=== PATIENT | female | born 1985 | race Caucasian/White ===

== ENCOUNTER 2019-03-23 22:55 | Emergency (ER) | payer MEDICAID ==
--- NOTE | 2019-03-23 23:08 | ED Physician Documentation ---
History of Present Illness - Stated complaint Stated Complaint: LOW BACK PAIN - Chief complaint Chief Complaint: Back Pain - Additonal information Additional information: This is a 33-year-old G6, P3 who is currently at around 12 weeks by LMP Who presents with some abdominal cramping after a fall. Patient was walking across her yard tonight and slipped landing on her bottom and then onto her lower back. She had mild lower back pain, but since that time she also developed some lower abdominal cramping, given her current she wanted to get checked out. She denies vaginal bleeding, states the cramping is mild and nancy rates from the right to the left side. No vomiting. She recently moved to the area and is in the process of establishing with an OB provider. 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 Living Arrangement: reports: At home PD ED PE NORMAL - Vitals Vital signs reviewed: Yes - General General: Alert and oriented X 3, No acute distress - HEENT HEENT: PERRL - Neck Neck: Supple, no meningeal sign - Cardiac Cardiac: RRR, No murmur - Respiratory Respiratory: Clear bilaterally - Abdomen Abdomen: Normal bowel sounds, Soft, Non distended, Other (Very mild suprapubic tenderness to deep palpation, otherwise abdomen is non-tender. No guarding) - Back Back: Other (There is mild right paraspinous tenderness to palpation, no midline tenderness, no external signs of trauma, no bruising, noLaceration/abrasion. Patient has excellent range of motion with flexion extension of her back.) - Derm Derm: Warm and dry - Extremities Extremities: No deformity - Neuro Neuro: Alert and oriented X 3 - Psych Psych: Normal mood, Normal affect Results - Vitals Vitals: Vital Signs - 24 hr 03/23/19 23:02 Temperature 37.0 C Heart Rate 99 Respiratory 14 Rate Blood Pressure 143/82 H O2 Saturation 99 Oxygen O2 Source Room air - Labs Labs: Laboratory Tests 03/23/19 03/23/19 03/23/19 23:05 23:25 23:25 WBC 13.1 H RBC 4.55 Hgb 12.3 Hct 38.3 MCV 84.2 MCH 27.0 MCHC 32.1 RDW 16.9 H Plt Count 381 MPV 9.5 Neut # (Auto) 9.4 H Lymph # (Auto) 2.6 [place] # (Auto) 0.8 Eos # (Auto) 0.2 Baso # (Auto) 0.1 Absolute Nucleated RBC 0.00 Nucleated RBC % 0.0 Sodium 137 Potassium 3.7 Chloride 105 Carbon Dioxide 22 Anion Gap 10.0 BUN 7 Creatinine 0.5 Estimated GFR (MDRD) 141 Glucose 93 Calcium 8.7 Total Bilirubin 0.3 AST 16 ALT 24 Alkaline Phosphatase 65 Total Protein 7.5 Albumin 3.6 Globulin 3.9 Albumin/Globulin Ratio 0.9 L Lipase 27 HCG, Quant Urine Color YELLOW Urine Clarity CLEAR Urine pH 8.0 H Ur Specific [place] 1.010 Urine Protein 30 H Urine Glucose (UA) NEGATIVE Urine Ketones NEGATIVE Urine Occult Blood TRACE-INTA Urine Nitrite NEGATIVE Urine Bilirubin NEGATIVE Urine Urobilinogen 0.2 (NORMAL) Ur Leukocyte Esterase NEGATIVE Urine RBC 0-5 Urine WBC 0-3 Ur Squamous Epith Cells FEW Squamous Urine Bacteria Rare Urine Culture Comments NOT INDICATED Urine HCG, Qual Cancelled 03/23/19 23:25 WBC RBC Hgb Hct MCV MCH MCHC RDW Plt Count MPV Neut # (Auto) Lymph # (Auto) [place] # (Auto) Eos # (Auto) Baso # (Auto) Absolute Nucleated RBC Nucleated RBC % Sodium Potassium Chloride Carbon Dioxide Anion Gap BUN Creatinine Estimated GFR (MDRD) Glucose Calcium Total Bilirubin AST ALT Alkaline Phosphatase Total Protein Albumin Globulin Albumin/Globulin Ratio Lipase HCG, Quant 09784.00 Urine Color Urine Clarity Urine pH Ur Specific [place] Urine Protein Urine Glucose (UA) Urine Ketones Urine Occult Blood Urine Nitrite Urine Bilirubin Urine Urobilinogen Ur Leukocyte Esterase Urine RBC Urine WBC Ur Squamous Epith Cells Urine Bacteria Urine Culture Comments Urine HCG, Qual - Rads (name of study) US OB Radiology: Other (Single live intrauterine , large bilaterally simple appearing adnexal cysts with blood flow present and without definite acute complication, but gynecologic follow-up is recommended) PD MEDICAL DECISION MAKING - ED course Complexity details: considered differential (Abdominal cramping, threatened miscarriage, ovarian torsion, UTI, appendicitis, Sprain, strain, fracture) ED course: Patient is well-appearing on exam, she has has mild tenderness in her paraspinous muscles without any midline tenderness or signs of fracture. Given her reassuring exam, her Low-energy mechanism of injury, fracture or other osseous abnormality is extremely unlikely and imaging is deferred at this time. She has some mild abdominal cramping, and very mild suprapubic tenderness to palpation, but her abdomen is Benign. She has no vaginal bleeding. Labs show a mild leukocytosis which is nonspecific and may be simply due to her , Urine is negative for infection. Abdominal panel is unremarkable. hCG is appropriately elevated ultrasound shows a single by heart rate of 162. She does have bilateral large ovarian cysts, these are known, she states that she has been told that she has softball sized cysts in the past. These have been asymptomatic, and given patient's crampy pain which migrates around her lower abdomen tonight, they are unlikely to be the cause of her discomfort. She has good blood flow seen on ultrasound tonight, I do not see signs of torsion. I went over the results of the ultrasound with the patient, and explained that if she has increasing pain, or pain which localizes to one side of her abdomen she does need be rechecked, given the risk of torsion or other abdominal/pelvic pathology. I also discussed that she should follow-up on the cyst with her OB provider, she has follow-up in the next 6 days. A copy of her preliminary results were given to the patient. After discussing return precautions and supportive care patient was discharged home in the care of her partner. Departure - Departure Disposition: 01 Home, Self Care Clinical Impression: Qualifiers: Weeks of gestation: 11 weeks Qualified Code(s): Z3A.11 - 11 weeks gestation of Fall Qualifiers: Encounter type: initial encounter Qualified Code(s): W19.XXXA - Unspecified fall, initial encounter Ovarian cyst Qualifiers: Laterality: bilateral Qualified Code(s): N83.201 - Unspecified ovarian cyst, right side; N83.202 - Unspecified ovarian cyst, left side Condition: Good Follow-Up: Jonah Shaikh MD [Provider Admit Priv/Credential] - (As scheduled in the next week) Comments: You were seen today for some abdominal cramping after a fall. On our ultrasound the fetus looked viable and the heart rate looked normal. You do have some large cysts on your ovaries, these should be followed up with your OB provider, and if you are having significant abdominal pain, vaginal bleeding, or other concerning symptoms you should return to the emergency department like we talked about. It is okay to take Tylenol for back discomfort or minor pain. Forms: Activity restrictions
[2019-03-23] MEDS ORDERED: ACETAMINOPHEN 325 MG TABLET PO STA (23:21)
[2019-03-23 23:25] LABS: BILIRUBIN,URINE NEGATIVE (NEGATIVE); CLARITY,URINE CLEAR (CLEAR); GLUCOSE, URINE (UA) NEGATIVE (NEGATIVE); KETONES,URINE (UA) NEGATIVE (NEGATIVE); LEUKOCYTE ESTERASE, URINE NEGATIVE (NEGATIVE); NITRITE,URINE NEGATIVE (NEGATIVE); OCCULT BLOOD,URINE TRACE-INTA (NEGATIVE); PROTEIN,URINE 30 mg/dL (NEGATIVE); UROBILINOGEN,URINE 0.2 (NORMAL) E.U./dL (NORMAL)
[2019-03-23 23:30] LABS: BACTERIA,URINE Rare /HPF (None Seen); RBC,URINE 0-5 /HPF (0-5); SQUAMOUS EPITHELIAL CELL,UR FEW Squamous (<= Few)
[2019-03-23 23:33] LABS: BASOPHILS # (AUTO) 0.1 10^3/uL (0.0-0.1); BASOPHILS % (AUTO) 0.6 %; EOSINOPHILS # (AUTO) 0.2 10^3/uL (0.0-0.7); EOSINOPHILS % (AUTO) 1.3 %; HGB - HEMOGLOBIN 12.3 g/dL (12.0-16.0); LYMPHOCYTES # (AUTO) 2.6 10^3/uL (1.5-3.5); MEAN CORPUSCULAR HGB CONC 32.1 g/dL (32.0-36.0); MEAN CORPUSCULAR VOLUME 84.2 fL (81.0-99.0); MEAN PLATELET VOLUME 9.5 fL (7.9-10.8); MONOCYTES # (AUTO) 0.8 10^3/uL (0.0-1.0); MONOCYTES % (AUTO) 5.9 %; NEUTROPHILS # (AUTO) 9.4 10^3/uL (1.5-6.6); NEUTROPHILS % (AUTO) 71.7 %; PLT - PLATELET COUNT 381 10^3/uL (130-450); RED BLOOD COUNT 4.55 10^6/uL (4.20-5.40); RED CELL DISTRIBUTION WIDTH 16.9 % (12.0-15.0); WHITE BLOOD COUNT 13.1 x10^3/uL (4.8-10.8)
[2019-03-23 23:47] LABS: ALBUMIN 3.6 g/dL (3.2-5.5); ALBUMIN/GLOBULIN RATIO 0.9 (1.0-2.2); BILIRUBIN,TOTAL 0.3 mg/dL (0.2-1.0); CALCIUM 8.7 mg/dL (8.5-10.3); CREATININE 0.5 mg/dL (0.4-1.0); TOTAL PROTEIN 7.5 g/dL (6.7-8.2)
--- NOTE | 2019-03-24 01:00 | Ultrasound Report ---
Reason: 12 wks, abd cramping, no prior US Procedure Date: 03/23/2019 Accession Number: [id number] / [id number] Procedure: US - OB First Trimester CPT Code: Final Report FULL RESULT: EXAM: FIRST TRIMESTER OBSTETRIC ULTRASOUND (LESS THAN 11 WEEKS). EXAM DATE: 03/23/2019 11:59 PM. CLINICAL HISTORY: , abdominal cramping, no prior ultrasound. LMP: 01/03/2019, 11 weeks 2 days. COMPARISONS: None. TECHNIQUE: Transabdominal ultrasound examination with static image documentation. FINDINGS: Gestational Sac: An intrauterine fluid-filled sac contains both an embryo and yolk sac. Embryo: CRL (crown-rump length) measures 46 mm corresponding to an estimated gestational age of 11 weeks 3 days. Heart Rate: 162 beats per minute. Placenta: Not visible at this gestational age. Amniotic fluid: Not accurately assessed at this gestational age. Uterus: Unremarkable anteverted appearance. Cervix: Closed. Adnexa: There are bilateral large simple appearing cysts measuring 10.2 x 7.9 x 10.3 cm on the right and 9.9 x 12.4 x 5.7 cm on the left. Probable small amount of normal ovarian tissue noted along the right adnexal cyst but no normal ovarian tissue seen on the left. Blood flow is seen around the periphery of the cyst. No definitive suspicious component seen. Free Fluid: None. Other: None. IMPRESSION: 1. Single live intrauterine at 11 weeks 2 days by LMP, today's exam is concordant -- for an estimated delivery date of 10/10/2019. 2. Large bilateral grossly simple appearing adnexal cysts measuring up to 10 cm on the right and 12 cm on the left. No definite acute complication but gynecologic follow-up is recommended given cyst size. Intermittent torsion cannot be excluded by imaging. At minimum, sonographic surveillance during will be necessary. MRI may also be ultimately useful. RADIA
[2019-03-24 01:09] VITALS: BP 113/78
== END 2019-03-24 01:09 | disposition home or self-care (01) ==
LOC: ED 22:55
DX: O99.89 Other specified diseases and conditions complicating pregnancy, childbirth and the puerperium (principal); R10.30 Lower abdominal pain, unspecified; M54.5 Low back pain; W01.0XXA Fall on same level from slipping, tripping and stumbling without subsequent striking against object, initial encounter; Y93.01 Activity, walking, marching and hiking; Y92.007 Garden or yard of unspecified non-institutional (private) residence as the place of occurrence of the external cause; O34.81 Maternal care for other abnormalities of pelvic organs, first trimester; N83.202 Unspecified ovarian cyst, left side; N83.201 Unspecified ovarian cyst, right side; Z3A.11 11 weeks gestation of pregnancy
CPT/HCPCS: 36415; 76801; 80053; 81001; 83690; 84702; 85025; 99284; A9270; 81025; 87086

== ENCOUNTER 2019-03-30 07:00 | Outpatient (CLI) | payer MEDICAID ==
[2019-03-30 18:27] LABS: MUDS CUTOFF CONCENTRATIONS CUTOFF CONC BELOW:
[2019-03-30 18:59] LABS: BILIRUBIN,URINE NEGATIVE (NEGATIVE); GLUCOSE, URINE (UA) NEGATIVE (NEGATIVE); KETONES,URINE (UA) NEGATIVE (NEGATIVE); LEUKOCYTE ESTERASE, URINE NEGATIVE (NEGATIVE); NITRITE,URINE NEGATIVE (NEGATIVE); OCCULT BLOOD,URINE TRACE-LYSE (NEGATIVE); PROTEIN,URINE 100 mg/dL (NEGATIVE); UROBILINOGEN,URINE 0.2 (NORMAL) E.U./dL (NORMAL)
[2019-03-30 19:03] LABS: CLARITY,URINE CLEAR (CLEAR)
[2019-03-30 19:10] LABS: AMPHETAMINE SCREEN,URINE NEGATIVE (NEGATIVE); BENZODIAZEPINES SCREEN, URINE NEGATIVE (NEGATIVE); COCAINE SCREEN URINE NEGATIVE (NEGATIVE); METHADONE SCREEN, URINE NEGATIVE (NEGATIVE); METHAMPHETAMINES SCREEN, URINE NEGATIVE (NEGATIVE); OPIATE SCREEN, URINE NEGATIVE (NEGATIVE); OXYCODONE SCREEN, URINE NEGATIVE (NEGATIVE); PROPOXYPHENE SCREEN, URINE NEGATIVE (NEGATIVE); TRICYCLIC ANTIDEPRESSANT,URINE NEGATIVE (NEGATIVE)
[2019-03-30 19:11] LABS: BACTERIA,URINE None Seen /HPF (None Seen); RBC,URINE 0-5 /HPF (0-5); SQUAMOUS EPITHELIAL CELL,UR RARE Squamous (<= Few)
[2019-03-30 21:37] LABS: TRICHOMONAS VAGINALIS DNA NEGATIVE (NEGATIVE)
== END 2019-03-30 23:59 | disposition home or self-care (01) ==
LOC: LAB.R 07:00
PROVIDERS: ATTEND Obstetrics & Gynecology
DX: Z34.90 Encounter for supervision of normal pregnancy, unspecified, unspecified trimester (principal)
CPT/HCPCS: 80306; 81001; 87086; 87491; 87591; 87661

== ENCOUNTER 2019-05-20 08:29 | Outpatient (CLI) | payer MEDICAID ==
--- NOTE | 2019-05-22 04:42 | Ultrasound Report ---
Reason: ENCOUNTER FOR SCREENING Procedure Date: 05/20/2019 Accession Number: [id number] / [id number] Procedure: US - OB Detailed Eval CPT Code: Final Report FULL RESULT: EXAM: COMPLETE OBSTETRICAL ULTRASOUND EXAM DATE: 05/20/2019 10:11 AM. CLINICAL HISTORY: anatomic survey. COMPARISON: OB FIRST TRIMESTER 03/23/2019 11:40 PM. TECHNIQUE: Real-time sonographic evaluation of the fetus performed by the training instructor. Multiple outbound sales representative static images were saved for review. Additional transvaginal imaging to more accurately evaluate cervical length/placental position/etc. DATING: Established EGA 19 weeks 4 days with BURTON 10/10/2019 based on stated dates. EGA 19 weeks 4 days with BURTON 10/10/2019 based on LMP. EGA 19 weeks 3 days with BURTON 10/11/2019 based on the current ultrasound. GENERAL EVALUATION [place] . Cardiac activity: 147 bpm. movement: Visualized. Presentation: Variable. Placenta: Posterior position. No evidence for previa. Umbilical cord: 3 vessel cord. Central placental cord origin. Amniotic fluid: Subjectively normal. MVP 5.5 cm. BIOMETRY Bi-Parietal Diameter (BPD): 4.5 cm, 19 weeks 5 days Head Circumference (HC): 17.2 cm, 19 weeks 6 days Abdominal Circumference (AC): 14.619 weeks 6 days cm, weeks/days Femur Length (FL): 2.8 cm, 18 weeks 4 days Estimated Weig 287 ht: g, 32.4 percentile for 19 weeks 4 days. ANATOMY The intracranial structures, profile, face/nose/lips, spine, 4 chamber heart and outflow tracts, stomach, abdominal wall and cord insertion, diaphragm, kidneys, bladder, and extremities were visualized and demonstrate no abnormality. MATERNAL STRUCTURES Uterus: Unremarkable. Cervix: Long and closed. Transabdominal length 4.7 cm. Right ovary/adnexa: Large cyst measuring 11.2 x 6.7 x 10.2 cm, 400 cc, previously 434 cc. Left ovary/adnexa: Large cyst measuring 10.5 x 6.1 x 9.8 cm, 328 cc, previously 372 cc. Free fluid: None. IMPRESSION: 1. [place] live intrauterine with gestational age 19 weeks 4 days based on stated dates. 2. Estimated weight is within expected limits for assigned dating. 3. Normal anatomic survey. No anatomic abnormalities are detected at this time. 4. Large bilateral ovarian cysts again seen. RADIA
== END 2019-05-20 08:30 | disposition home or self-care (01) ==
LOC: DI 08:29
PROVIDERS: ATTEND Obstetrics & Gynecology
DX: Z34.92 Encounter for supervision of normal pregnancy, unspecified, second trimester (principal)
CPT/HCPCS: 76811

== ENCOUNTER 2019-06-09 14:25 | Outpatient (CLI) | payer MEDICAID ==
[2019-06-09 14:58] VITALS: BP 132/60
[2019-06-09 15:20] LABS: BILIRUBIN,URINE NEGATIVE (NEGATIVE); GLUCOSE, URINE (UA) NEGATIVE (NEGATIVE); KETONES,URINE (UA) NEGATIVE (NEGATIVE); LEUKOCYTE ESTERASE, URINE NEGATIVE (NEGATIVE); NITRITE,URINE NEGATIVE (NEGATIVE); OCCULT BLOOD,URINE MODERATE (NEGATIVE); PH,URINE 6.5 PH (5.0-7.5); PROTEIN,URINE 100 mg/dL (NEGATIVE); UROBILINOGEN,URINE 0.2 (NORMAL) E.U./dL (NORMAL)
[2019-06-09 15:33] LABS: CLARITY,URINE CLEAR (CLEAR)
[2019-06-09 15:46] LABS: RBC,URINE 0-5 /HPF (0-5); SQUAMOUS EPITHELIAL CELL,UR MANY Squamous (<= Few)
[2019-06-09 15:47] LABS: BACTERIA,URINE Rare /HPF (None Seen); CASTS, URINE 3-5 Hyaline Casts /LPF; MUCUS,URINE Few Strands
--- NOTE | 2019-06-09 16:13 | PROVIDER PROGRESS NOTE ---
- HPI Chief Complaint: Other (right sided groin pain and tenderness. onset this AM. 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
== END 2019-06-09 16:05 | disposition home or self-care (01) ==
LOC: WFO 14:25 → FBP 14:26 → WFO 16:05
PROVIDERS: ATTEND Obstetrics & Gynecology
DX: O99.89 Other specified diseases and conditions complicating pregnancy, childbirth and the puerperium (principal); R10.31 Right lower quadrant pain; Z3A.22 22 weeks gestation of pregnancy
CPT/HCPCS: 81001; 87086; 99212; 99214

== ENCOUNTER 2019-07-27 09:15 | Outpatient (CLI) | payer MEDICAID ==
[2019-07-27 12:59] LABS: BASOPHILS # (AUTO) 0.1 10^3/uL (0.0-0.1); BASOPHILS % (AUTO) 0.7 %; EOSINOPHILS # (AUTO) 0.2 10^3/uL (0.0-0.7); EOSINOPHILS % (AUTO) 1.7 %; HGB - HEMOGLOBIN 10.3 g/dL (12.0-16.0); LYMPHOCYTES # (AUTO) 1.9 10^3/uL (1.5-3.5); LYMPHOCYTES % (AUTO) 14.9 %; MEAN CORPUSCULAR HEMOGLOBIN 28.1 pg (27.0-31.0); MEAN CORPUSCULAR HGB CONC 29.3 g/dL (32.0-36.0); MEAN CORPUSCULAR VOLUME 95.6 fL (81.0-99.0); MEAN PLATELET VOLUME 10.6 fL (7.9-10.8); MONOCYTES # (AUTO) 0.8 10^3/uL (0.0-1.0); NEUTROPHILS # (AUTO) 9.6 10^3/uL (1.5-6.6); NEUTROPHILS % (AUTO) 75.7 %; PLT - PLATELET COUNT 370 10^3/uL (130-450); RED BLOOD COUNT 3.67 10^6/uL (4.20-5.40); WHITE BLOOD COUNT 12.7 x10^3/uL (4.8-10.8)
[2019-07-27 13:33] LABS: ALBUMIN 2.6 g/dL (3.2-5.5); ALBUMIN/GLOBULIN RATIO 0.7 (1.0-2.2); BILIRUBIN,TOTAL 0.2 mg/dL (0.2-1.0); CALCIUM 8.4 mg/dL (8.5-10.3); CREATININE 0.4 mg/dL (0.4-1.0); TOTAL PROTEIN 6.4 g/dL (6.7-8.2)
[2019-07-27 14:12] LABS: HB2 TOTAL 10.3 g/dL; HEMOGLOBIN A1C 0.36 g/dL; HEMOGLOBIN A1C % 5.3 % (4.6-6.2)
[2019-07-28 10:24] LABS: HEPATITIS C ANTIBODY NON-REACTIVE (NON-REACTIVE)
[2019-07-28 10:25] LABS: HEPATITIS B SURFACE ANTIGEN NON-REACTIVE (NON-REACTIVE)
[2019-07-28 10:40] LABS: HIV AG/AB 4TH GEN NON-REACTIVE (NON-REACTIVE)
== END 2019-07-27 23:59 | disposition home or self-care (01) ==
LOC: LAB.WCP 09:15
PROVIDERS: ATTEND Obstetrics & Gynecology
DX: Z34.90 Encounter for supervision of normal pregnancy, unspecified, unspecified trimester (principal); Z31.5 Encounter for procreative genetic counseling; Z36.89 Encounter for other specified antenatal screening
CPT/HCPCS: 36415; 80053; 81599; 82950; 83036; 85025; 86592; 86762; 86803; 86850; 86900; 86901; 87340; 87389; 87522

== ENCOUNTER 2019-08-04 14:57 | Outpatient (CLI) | payer MEDICAID ==
--- NOTE | 2019-08-06 03:00 | Ultrasound Report ---
Reason: UTERINE SIZE DATE DISCREPANCY Procedure Date: 08/04/2019 Accession Number: [id number] / [id number] Procedure: US - OB F/U or Repeat CPT Code: Final Report FULL RESULT: EXAM: FOLLOW-UP OBSTETRICAL ULTRASOUND EXAM DATE: 08/04/2019 04:24 PM. CLINICAL HISTORY: UTERINE SIZE DATE DISCREPANCY. COMPARISON: OB DETAILED EVAL 05/20/2019 8:35 AM. TECHNIQUE: Real-time sonographic evaluation of the fetus performed by the leather colorer. Multiple quality assurance representative static images were saved for review. DATING: Established EGA 30 weeks 3 days with BURTON 10/10/2019 based on LMP. EGA 30 weeks 3 days with BURTON 10/20/2019 based on first ultrasound. EGA 31 weeks 5 days with BURTON 10/01/2019 based on the current ultrasound. GENERAL EVALUATION [place] . Cardiac activity: 147 bpm. movement: Visualized. Presentation: Cephalic. Placenta: Posterior position. Amniotic fluid: CARLOS 24.4 cm. MVP 7.3 cm. BIOMETRY Bi-Parietal Diameter (BPD): 7.97 cm, 32 weeks 0 days Head Circumference (HC): 30.24 cm, 33 weeks 4 days Abdominal Circumference (AC): 29.01 cm, 33 weeks 0 days Femur Length (FL): 5.25 cm, 28 weeks 0 days Estimated Weight: 1778 g, 74.5 percentile for 30 weeks 3 days. MATERNAL STRUCTURES Large bilateral ovarian cysts measuring 15.6 x 10.9 x 14.7 cm on the right and 10.5 x 7.8 x 11.0 cm on the left. IMPRESSION: 1. [place] live intrauterine with gestational age 30 weeks 3 days based on source of assigned dating. 2. Estimated weight is within expected limits for assigned dating. 3. Normal interval growth compared to 05/20/2019. 4. Mild polyhydramnios. 5. Measured femur length is below the 5th percentile for gestational age. RADIA
== END 2019-08-04 14:58 | disposition home or self-care (01) ==
LOC: DI 14:57
PROVIDERS: ATTEND Obstetrics & Gynecology
DX: O26.843 Uterine size-date discrepancy, third trimester (principal); O40.3XX0 Polyhydramnios, third trimester, not applicable or unspecified; Z3A.30 30 weeks gestation of pregnancy
CPT/HCPCS: 76816

== ENCOUNTER 2019-09-13 07:00 | Outpatient (CLI) | payer MEDICAID ==
[2019-09-13 15:45] LABS: BILIRUBIN,URINE NEGATIVE (NEGATIVE); GLUCOSE, URINE (UA) NEGATIVE (NEGATIVE); KETONES,URINE (UA) NEGATIVE (NEGATIVE); LEUKOCYTE ESTERASE, URINE SMALL (NEGATIVE); NITRITE,URINE NEGATIVE (NEGATIVE); OCCULT BLOOD,URINE SMALL (NEGATIVE); PH,URINE 7.5 PH (5.0-7.5); PROTEIN,URINE >=300 mg/dL (NEGATIVE); UROBILINOGEN,URINE 0.2 (NORMAL) E.U./dL (NORMAL)
[2019-09-13 15:58] LABS: CLARITY,URINE CLEAR (CLEAR)
[2019-09-13 15:59] LABS: BACTERIA,URINE Few /HPF (None Seen); RBC,URINE 0-5 /HPF (0-5); SQUAMOUS EPITHELIAL CELL,UR MANY Squamous (<= Few)
[2019-09-13 16:23] LABS: CREATININE,URINE 59.2 mg/dL
[2019-09-13 21:34] LABS: TRICHOMONAS VAGINALIS DNA NEGATIVE (NEGATIVE)
== END 2019-09-13 23:59 | disposition home or self-care (01) ==
LOC: LAB.R 07:00
PROVIDERS: ATTEND Advanced Practice Midwife
DX: Z34.90 Encounter for supervision of normal pregnancy, unspecified, unspecified trimester (principal); Z36.85 Encounter for antenatal screening for Streptococcus B
CPT/HCPCS: 81001; 81003; 82570; 84156; 87086; 87491; 87591; 87661; 87797

== ENCOUNTER 2019-12-08 12:56 | Day surgery (SDC) | payer MEDICAID ==
--- NOTE | 2019-12-08 13:14 | ED Physician Documentation ---
PD HPI ABD PAIN - Stated complaint Stated Complaint: GROIN PX/VOMITING - Chief complaint Chief Complaint: Abd Pain - History obtained from History obtained from: Patient - History of Present Illness Timing - onset: Today (abrupt onset about 4:30 this morning, with significant worsening the past couple of hours.) Timing - duration: Hours Timing - details: Abrupt onset Quality: Aching, Sharp, Pain Location: RLQ Radiation: Lower back Improved by: No: Eating, Position Worsened by: Moving, Palpation. No: Eating, Breathing Associated symptoms: Nausea, Loss of appetite. No: Fever, Vomiting, Diarrhea, C onstipation, Dysuria Similar symptoms before: Has not had sx before Recently seen: Admitted (gave full term 3 months ago. Had had ovarian cysts seen on U/Ss and option was to leave them alone since not symptomatic.) Review of Systems Constitutional: denies: Fever, Chills Nose: denies: Rhinorrhea / runny nose, Congestion Throat: denies: Sore throat Respiratory: denies: Cough GI: reports: Abdominal Pain, Nausea. denies: Abdominal Swelling, Vomiting, Constipation, Diarrhea : denies: Dysuria, Frequency, Discharge Neurologic: reports: Generalized weakness. 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) Derm: None - Past Surgical History Past Surgical History: No - Present Medications Home Medications: Ambulatory Orders Medication Instructions Recorded Confirmed Acetaminophen [Tylenol] 650 mg PO Q4HR PRN #50 tablet 09/19/19 Ibuprofen [Motrin] 600 mg PO Q6H PRN #30 tablet 09/19/19 Nicotine 14 mg Patch [Nicoderm] 1 patch TOP DAILY #30 patch 09/19/19 - Allergies Allergies/Adverse Reactions: Allergies Allergy/AdvReac Type Severity Reaction Status Date / Time codeine AdvReac Mild Nausea Verified 12/08/19 13:09 - Social History Does the pt smoke?: No Smoking Status: Current every day smoker (5-10 cigs/day; denies other drugs, previously neg UTox) - Immunizations Immunizations are current?: Yes - POLST Patient has POLST: No PD ED PE NORMAL - Vitals Vital signs reviewed: Yes - General General: Alert and oriented X 3, No acute distress, Well developed/nourished - Neck Neck: Supple, no meningeal sign, No adenopathy - Cardiac Cardiac: RRR, No murmur - Respiratory Respiratory: Clear bilaterally - Abdomen Abdomen: Normal bowel sounds, Soft, Non distended, No organomegaly, Other (tender RLQ with local guarding and percussion tenderness. Fullness in suprapubic area, possible enlarged uterus? Some right CVA tenderness. ) - Female Female : Deferred - Rectal Rectal: Deferred - Back Back: No CVA TTP - Derm Derm: Normal color, Warm and dry - Neuro Neuro: Alert and oriented X 3, No motor deficit, Normal speech Results - Vitals Vitals: Vital Signs - 24 hr 12/08/19 12/08/19 12/08/19 13:07 13:09 15:10 Temperature 36.8 C 37.2 C Heart Rate 93 92 87 Respiratory 22 20 22 Rate Blood Pressure 154/85 H 154/85 H 171/105 H O2 Saturation 99 100 94 12/08/19 17:41 Temperature Heart Rate 88 Respiratory 18 Rate Blood Pressure 172/90 H O2 Saturation 99 Oxygen O2 Source Room air - Labs Labs: Laboratory Tests 12/08/19 12/08/19 12/08/19 13:10 13:52 13:52 WBC 23.3 H RBC 5.11 Hgb 15.0 Hct 46.4 MCV 90.8 MCH 29.4 MCHC 32.3 RDW 13.8 Plt Count 509 H MPV 9.4 Neut # (Auto) 21.0 H Lymph # (Auto) 1.2 L [place] # (Auto) 0.7 Eos # (Auto) 0.0 Baso # (Auto) 0.1 Absolute Nucleated RBC 0.00 Nucleated RBC % 0.0 Manual Slide Review Indicated WBC Morphology Platelet Estimate INCREASED (>450,000) Platelet Morphology NORMAL APPEARANCE RBC Morph Micro Appear NORMAL APPEARANCE Sodium 133 L Potassium 4.1 Chloride 98 L Carbon Dioxide 22 Anion Gap 13.0 BUN 10 Creatinine 0.7 Estimated GFR (MDRD) 95 Glucose 135 H Calcium 9.0 Total Bilirubin 0.4 AST 21 ALT 29 Alkaline Phosphatase 68 Total Protein 7.9 Albumin 4.1 Globulin 3.8 Albumin/Globulin Ratio 1.1 Lipase 24 CA 125 Antigen Urine Color YELLOW Urine Clarity CLEAR Urine pH 5.5 Ur Specific [place] >=1.030 H Urine Protein >=300 H Urine Glucose (UA) NEGATIVE Urine Ketones NEGATIVE Urine Occult Blood MODERATE H Urine Nitrite NEGATIVE Urine Bilirubin NEGATIVE Urine Urobilinogen 0.2 (NORMAL) Ur Leukocyte Esterase NEGATIVE Urine RBC 0-5 Urine WBC 0-3 Ur Squamous Epith Cells MOD Squamous H Urine Bacteria Few Urine Casts 0-2 Hyaline Casts Ur Microscopic Review INDICATED Urine Culture Comments NOT INDICATED Urine HCG, Qual NEGATIVE 12/08/19 13:52 WBC RBC Hgb Hct MCV MCH MCHC RDW Plt Count MPV Neut # (Auto) Lymph # (Auto) [place] # (Auto) Eos # (Auto) Baso # (Auto) Absolute Nucleated RBC Nucleated RBC % Manual Slide Review WBC Morphology Platelet Estimate Platelet Morphology RBC Morph Micro Appear Sodium Potassium Chloride Carbon Dioxide Anion Gap BUN Creatinine Estimated GFR (MDRD) Glucose Calcium Total Bilirubin AST ALT Alkaline Phosphatase Total Protein Albumin Globulin Albumin/Globulin Ratio Lipase [place] 125 Antigen 15.4 Urine Color Urine Clarity Urine pH Ur Specific [place] Urine Protein Urine Glucose (UA) Urine Ketones Urine Occult Blood Urine Nitrite Urine Bilirubin Urine Urobilinogen Ur Leukocyte Esterase Urine RBC Urine WBC Ur Squamous Epith Cells Urine Bacteria Urine Casts Ur Microscopic Review Urine Culture Comments Urine HCG, Qual - Rads (name of study) abd CT Radiology: Prelim report reviewed (no ureteral stones nor hydronephrosis. No mesenteric adenopathy. very large ovarian cysts both right and left. Some pelvic free fluid. ), See rad report PD MEDICAL DECISION MAKING - ED course Complexity details: reviewed results (normal appendix and no stones. Some pelvic free fluid. Very large ovarian cysts, similar to prior U/S but some larger. New finding of some free fluid, so presume is leaking, causing the abrupt pain. ), considered differential, d/w patient, d/w php consultant (Dr. Joshi, information technology associate for MACHINE II TRIMMER, who will come see the patient. ) Departure - Departure Disposition: ED Transfer to [facility] Clinical Impression: Right lower quadrant abdominal pain Ovarian cyst Qualifiers: Laterality: bilateral Qualified Code(s): N83.201 - Unspecified ovarian cyst, right side Condition: Stable Record reviewed to determine appropriate education?: Yes Discharge Date/Time: 12/08/19 18:15
[2019-12-08] MEDS ORDERED: KETOROLAC 30 MG/ML VIAL IVP STA (13:23)
[2019-12-08] MEDS ORDERED: SODIUM CHLORIDE 0.9% 1,000 ML IV STA (13:23)
[2019-12-08] MEDS ORDERED: HYDROmorphone 1 MG/ML CARPUJECT IVP STA ×3 (13:23→16:02)
[2019-12-08] MEDS ORDERED: ONDANSETRON 4 MG/2 ML VIAL IVP STA ×2 (13:23→17:18)
[2019-12-08 13:26] LABS: BILIRUBIN,URINE NEGATIVE (NEGATIVE); GLUCOSE, URINE (UA) NEGATIVE (NEGATIVE); KETONES,URINE (UA) NEGATIVE (NEGATIVE); LEUKOCYTE ESTERASE, URINE NEGATIVE (NEGATIVE); NITRITE,URINE NEGATIVE (NEGATIVE); OCCULT BLOOD,URINE MODERATE (NEGATIVE); PH,URINE 5.5 PH (5.0-7.5); PROTEIN,URINE >=300 mg/dL (NEGATIVE); UROBILINOGEN,URINE 0.2 (NORMAL) E.U./dL (NORMAL)
[2019-12-08 13:36] LABS: CLARITY,URINE CLEAR (CLEAR); HCG UR QUAL NEGATIVE
[2019-12-08 13:37] LABS: BACTERIA,URINE Few /HPF (None Seen); CASTS, URINE 0-2 Hyaline Casts /LPF; RBC,URINE 0-5 /HPF (0-5); SQUAMOUS EPITHELIAL CELL,UR MOD Squamous (<= Few)
[2019-12-08] MEDS ORDERED: IOVERSOL 320 100 ML VIAL IVP ONE ×2 (13:53→17:14)
[2019-12-08 14:04] LABS: BASOPHILS # (AUTO) 0.1 10^3/uL (0.0-0.1); BASOPHILS % (AUTO) 0.5 %; EOSINOPHILS % (AUTO) 0.1 %; LYMPHOCYTES # (AUTO) 1.2 10^3/uL (1.5-3.5); LYMPHOCYTES % (AUTO) 5.1 %; MEAN CORPUSCULAR HEMOGLOBIN 29.4 pg (27.0-31.0); MEAN CORPUSCULAR HGB CONC 32.3 g/dL (32.0-36.0); MEAN CORPUSCULAR VOLUME 90.8 fL (81.0-99.0); MEAN PLATELET VOLUME 9.4 fL (7.9-10.8); MONOCYTES # (AUTO) 0.7 10^3/uL (0.0-1.0); MONOCYTES % (AUTO) 3.2 %; NEUTROPHILS % (AUTO) 90.3 %; PLT - PLATELET COUNT 509 10^3/uL (130-450); RED BLOOD COUNT 5.11 10^6/uL (4.20-5.40); RED CELL DISTRIBUTION WIDTH 13.8 % (12.0-15.0); WHITE BLOOD COUNT 23.3 x10^3/uL (4.8-10.8)
[2019-12-08 14:19] LABS: ALBUMIN 4.1 g/dL (3.2-5.5); ALBUMIN/GLOBULIN RATIO 1.1 (1.0-2.2); BILIRUBIN,TOTAL 0.4 mg/dL (0.2-1.0); CREATININE 0.7 mg/dL (0.4-1.0); TOTAL PROTEIN 7.9 g/dL (6.7-8.2)
[2019-12-08 14:29] LABS: PLATELET ESTIMATE, MANUAL INCREASED (>450,000) (NORMAL); PLATELET MORPHOLOGY NORMAL APPEARANCE (NORMAL); RBC MORPHOLOGY (MULTIPLE) NORMAL APPEARANCE (NORMAL)
--- NOTE | 2019-12-08 15:10 | CT Report ---
PROCEDURE: Abdomen/Pelvis W INDICATIONS: RLQ to back pain abrupt this AM CONTRAST: IV CONTRAST: Optiray 320 ml: 100 PO CONTRAST: *NO PO CONTRAST TECHNIQUE: After the administration of intravenous contrast, 5 mm thick sections acquired from the diaphragms to the symphysis. 5 mm thick coronal and sagittal reformats were acquired. For radiation dose reducti on, the following was used: automated exposure control, adjustment of mA and/or kV according to efra ent size. COMPARISON: OB ultrasound dated 08/04/2019. FINDINGS: Image quality: Excellent. ABDOMEN: Lung bases: Lung bases are clear. Heart size is normal. Solid organs: Liver and spleen are normal in size and enhancement. Gallbladder containing probable noncalcified gallstones. Biliary system is non dilated. Pancreas enhances normally. No adrenal nod ules. Kidneys demonstrate normal size and enhancement, without hydronephrosis. Peritoneum and bowel: Bowel loops demonstrate normal wall thickness and caliber. Small amount of pel gali ascites. Nodes and vessels: No retroperitoneal or mesenteric adenopathy by size criteria. Aorta and inferior vena cava are normal in size. Miscellaneous: No ventral hernias. PELVIS: Genitourinary: Bladder wall thickness is normal. Miscellaneous: No inguinal hernias or adenopathy. There are 2 large cystic structures present. They were present on the previous OB ultrasound. One is clearly contiguous with the left adnexa and has th in-walled septations and measures 8.9 x 9.2 x 10.4 cm. Reference coronal image axial 28/6 and image 7 6/3. More superiorly, is a complex partially solid and mostly cystic structure with a thick wall whic h may potentially arise from the right adnexa, measuring approximately 13.0 x 16.6 x 11.6 cm. Referen ce coronal image 21/6 and axial image 57/3. Bones: No suspicious bony lesions. No vertebral body compression fractures. IMPRESSION: 1. There are 2 very large cystic structures present in the pelvis and abdomen. They are immediately c ontiguous with each other. They are most likely adnexal in origin. Of note, they were present on the patient's recent obstetrical ultrasounds. The may either represent benign or malignant lesions. 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 Gynecological consultation is suggested. 2. Small amount of pelvic ascites. Above discussed with AUBREY CAPPS at the time of dictation. Reviewed by: Francisco J Kenny MD on 12/08/2019 3:09 PM PDT Approved by: Francisco J Kenny MD on 12/08/2019 3:09 PM PDT Station ID: [id number]
[2019-12-08] MEDS ORDERED: LACTATED RINGERS 1,000 ML IV STA (15:49)
[2019-12-08] MEDS ORDERED: NEOSTIGMINE 1 MG/1 ML 10 ML MDV IVP ONE (17:01)
[2019-12-08] MEDS ORDERED: METOPROLOL 5 MG/5 ML VIAL IVP ONE (17:01)
[2019-12-08] MEDS ORDERED: ACETAMINOPHEN 1,000 MG/100 ML 100 ML IV ONE (17:01)
[2019-12-08] MEDS ORDERED: LIDOCAINE-MPF 2% 5 ML VIAL IM ONE (17:01)
[2019-12-08] MEDS ORDERED: KETOROLAC 30 MG/ML VIAL IVP ONE (17:01)
[2019-12-08] MEDS ORDERED: ONDANSETRON 4 MG/2 ML VIAL IVP ONE (17:01)
[2019-12-08] MEDS ORDERED: MIDAZOLAM 2 MG/2 ML VIAL IVP ONE (17:01)
[2019-12-08] MEDS ORDERED: ESMOLOL 100 MG/10 ML VIAL IVP ONE (17:01)
[2019-12-08] MEDS ORDERED: ROCURONIUM 50 MG/5 ML VIAL IVP ONE (17:01)
[2019-12-08] MEDS ORDERED: PROPOFOL 200 MG/20 ML VIAL IVP ONE (17:01)
[2019-12-08] MEDS ORDERED: GLYCOPYRROLATE 1 MG/5 ML VIAL IVP ONE (17:01)
[2019-12-08] MEDS ORDERED: fentaNYL 100 MCG/2 ML VIAL IVP ONE (17:01)
[2019-12-08] MEDS ORDERED: DEXAMETHASONE 4 MG/ML VIAL IVP ONE (17:01)
--- NOTE | 2019-12-08 17:41 | ANESTHESIA ---
Pre-Anesthesia VS, & Labs - Diagnosis ovarian cysts - Procedure bilateral laparoscopic ovarian cystectomy with bilateral salphingectomy Vital Signs: Temp Pulse Resp BP Pulse Ox 37.2 C 87 22 171/105 H 94 12/08/19 15:10 12/08/19 15:10 12/08/19 15:10 12/08/19 15:10 12/08/19 15:10 Height 5 ft 3 in Weight (kg) 87.09 kg Body Mass Index 34.0 - NPO >8 hours - Is Patient ?: No - Lab Results Current Lab Results: Laboratory Tests 12/08/19 13:52: CA 125 Antigen 15.4 12/08/19 13:52: Sodium 133 L, Potassium 4.1, Chloride 98 L, Carbon Dioxide 22, Anion Gap 13.0, BUN 10, Creatinine 0.7, Estimated GFR (MDRD) 95, Glucose 135 H, Calcium 9.0, Total Bilirubin 0.4, AST 21, ALT 29, Alkaline Phosphatase 68, Total Protein 7.9, Albumin 4.1, Globulin 3.8, Albumin/Globulin Ratio 1.1, Lipase 24 12/08/19 13:52: WBC 23.3 H, RBC 5.11, Hgb 15.0, Hct 46.4, MCV 90.8, MCH 29.4, MCHC 32.3, RDW 13.8, Plt Count 509 H, MPV 9.4, Neut # (Auto) 21.0 H, Lymph # (Auto) 1.2 L, [place] # (Auto) 0.7, Eos # (Auto) 0.0, Baso # (Auto) 0.1, Absolute Nucleated RBC 0.00, Nucleated RBC % 0.0, Manual Slide Review Indicated, WBC Morphology , Platelet Estimate INCREASED (>450,000), Platelet Morphology NORMAL APPEARANCE, RBC Morph Micro Appear NORMAL APPEARANCE Lab results reviewed: Yes Fish Bones: 12/08/19 13:52 12/08/19 13:52 Home Medications and Allergies Active Medications Lactated Ringer's (Lr) 1,000 mls @ 500 mls/hr IV .Q2H STA Stop: 12/08/19 17:48 Last Admin: 12/08/19 16:09 Dose: 500 mls/hr Documented by: Allergies/Adverse Reactions: Allergies Allergy/AdvReac Type Severity Reaction Status Date / Time codeine AdvReac Mild Nausea Verified 12/08/19 13:09 Anes History & Medical History - Anesthetic History Anesthesia Complications: reports: No previous complications - Medical History Cardiovascular: reports: Hypertension, Other (tachycardia) Gastrointestinal: reports: None, GERD Endocrine/Autoimmune: reports: Other (ovarian cysts) Blood Disorders: reports: None, Anemia Skin: reports: None Smoking Status: Current every day smoker (5-10 cigs/day; denies other drugs, pr eviously neg UTox) Exam General: Alert, Oriented x3, Moderate distress Dental: WNL Mouth Opening: Can't Open Mouth Neck Mobility: Normal Mallampati classification: II Thyromental Distance: greater than 6 cm Respiratory: Lungs clear Cardiovascular: Regular rate Plan Anesthesia Type: General Consent for Procedure(s) Verified and Reviewed: Yes Code Status: Attempt Resuscitation ASA classification: 2-Mild systemic disease Is this case an emergency?: Yes
[2019-12-08] MEDS ORDERED: LIDOCAINE 1%-EPI 1:100000 20 ML MDV ONE (18:01)
[2019-12-08] MEDS ORDERED: BUPIVACAINE 0.5% PF 30 ML VIAL ONE (18:01)
--- NOTE | 2019-12-08 18:07 | HISTORY & PHYSICAL EXAMINATION ---
HPI - Admitted From Admitted from: ED - History Obtained From Records Reviewed: RN notes reviewed History obtained from: Patient Exam limitations: No limitations - History of Present Illness Severity at the worst: reports: Severe Pain Quality: reports: Sharp, Dull, Burning, Aching Context-Pain started w/: reports: Rest Timing: reports: Abrupt onset Improved with: reports: Rest Worsened by: reports: Movement Associated symptoms: reports: Nausea, Vomiting PMH/PSH - Past Medical History Cardiovascular: positive: Hypertension, Other (tachycardia) Endocrine/Autoimmune: positive: Other (ovarian cysts) GI: positive: GERD [employer]: positive: Miscarriage(s) Derm: positive: None Other Past Medical History: Obese. Current smoker - Past Surgical History Other past surgical history: No prior surgeries Social & Family Hx - Living Situation Living Arrangement: At home Living Situation: With family - Social History Does the pt smoke?: Yes Smoking Status: Current every day smoker (5-10 cigs/day; denies other drugs, previously neg UTox) Does the pt drink ETOH?: No Does the pt have substance abuse?: No - POLST Patient has POLST: No - Family History Family History Comment/Other: No anesthesia complications Meds/Allgy - Home Medications Home Medications: Ambulatory Orders Medication Instructions Recorded Confirmed Acetaminophen [Tylenol] 650 mg PO Q4HR PRN #50 tablet 09/19/19 Ibuprofen [Motrin] 600 mg PO Q6H PRN #30 tablet 09/19/19 Nicotine 14 mg Patch [Nicoderm] 1 patch TOP DAILY #30 patch 09/19/19 - Allergies Allergies/Adverse Reactions: Allergies Allergy/AdvReac Type Severity Reaction Status Date / Time codeine AdvReac Mild Nausea Verified 12/08/19 13:09 Review of Systems - Constitutional Constitutional: denies: Fever - Gastrointestinal Gastrointestinal: reports: Nausea, Vomiting. denies: Constipation, Diarrhea, Change in bowel habits - Genitourinary Genitourinary: denies: Dysuria, Frequency, Urgency, Hematuria Exam - Vital Signs Reviewed Vital Signs: Yes Vital Signs: Vital Signs x48h Temp Pulse Resp BP Pulse Ox 12/08/19 17:41 88 18 172/90 H 99 12/08/19 15:10 99.0 F 87 22 171/105 H 94 12/08/19 13:09 92 20 154/85 H 100 12/08/19 13:07 98.2 F 93 22 154/85 H 99 - Physical Exam General Appearance: positive: Moderate distress Eyes Bilateral: positive: EOMI ENT: positive: Other (poor dentition) Respiratory: positive: No respiratory distress Cardiovascular: positive: No murmur Abdomen: positive: Tenderness Results - Lab Results Fish Bones: 12/08/19 13:52 12/08/19 13:52 Other Lab Results: Lab Results x24hrs 12/08/19 12/08/19 12/08/19 Range/Units 13:52 13:52 13:52 WBC 23.3 H (4.8-10.8) x10^3/uL RBC 5.11 (4.20-5.40) 10^6/uL Hgb 15.0 (12.0-16.0) g/dL Hct 46.4 (37.0-47.0) % MCV 90.8 (81.0-99.0) fL MCH 29.4 (27.0-31.0) pg MCHC 32.3 (32.0-36.0) g/dL RDW 13.8 (12.0-15.0) % Plt Count 509 H (130-450) 10^3/uL MPV 9.4 (7.9-10.8) fL Neut # (Auto) 21.0 H (1.5-6.6) 10^3/uL Lymph # (Auto) 1.2 L (1.5-3.5) 10^3/uL [place] # (Auto) 0.7 (0.0-1.0) 10^3/uL Eos # (Auto) 0.0 (0.0-0.7) 10^3/uL Baso # (Auto) 0.1 (0.0-0.1) 10^3/uL Absolute Nucleated RBC 0.00 x10^3/uL Nucleated RBC % 0.0 /100WBC Manual Slide Review Indicated WBC Morphology (NORMAL) Platelet Estimate INCREASED (>450,000) (NORMAL) Platelet Morphology NORMAL APPEARANCE (NORMAL) RBC Morph Micro Appear NORMAL APPEARANCE (NORMAL) Sodium 133 L (135-145) mmol/L Potassium 4.1 (3.5-5.0) mmol/L Chloride 98 L (101-111) mmol/L Carbon Dioxide 22 (21-32) mmol/L Anion Gap 13.0 (6-13) BUN 10 (6-20) mg/dL Creatinine 0.7 (0.4-1.0) mg/dL Estimated GFR (MDRD) 95 (>89) Glucose 135 H (70-100) mg/dL Calcium 9.0 (8.5-10.3) mg/dL Total Bilirubin 0.4 (0.2-1.0) mg/dL AST 21 (10-42) IU/L ALT 29 (10-60) IU/L Alkaline Phosphatase 68 (42-121) IU/L Total Protein 7.9 (6.7-8.2) g/dL Albumin 4.1 (3.2-5.5) g/dL Globulin 3.8 (2.1-4.2) g/dL Albumin/Globulin Ratio 1.1 (1.0-2.2) Lipase 24 (22-51) U/L CA 125 Antigen 15.4 (0.0-35.0) U/mL Urine Color Urine Clarity (CLEAR) Urine pH (5.0-7.5) PH Ur Specific [place] (1.002-1.030) Urine Protein (NEGATIVE) mg/dL Urine Glucose (UA) (NEGATIVE) mg/dL Urine Ketones (NEGATIVE) mg/dL Urine Occult Blood (NEGATIVE) Urine Nitrite (NEGATIVE) Urine Bilirubin (NEGATIVE) Urine Urobilinogen (NORMAL) E.U./dL Ur Leukocyte Esterase (NEGATIVE) Urine RBC (0-5) /HPF Urine WBC (0-5) /HPF Ur Squamous Epith Cells (<= Few) Urine Bacteria (None Seen) /HPF Urine Casts /LPF Ur Microscopic Review Urine Culture Comments Urine HCG, Qual 12/08/19 Range/Units 13:10 WBC (4.8-10.8) x10^3/uL RBC (4.20-5.40) 10^6/uL Hgb (12.0-16.0) g/dL Hct (37.0-47.0) % MCV (81.0-99.0) fL MCH (27.0-31.0) pg MCHC (32.0-36.0) g/dL RDW (12.0-15.0) % Plt Count (130-450) 10^3/uL MPV (7.9-10.8) fL Neut # (Auto) (1.5-6.6) 10^3/uL Lymph # (Auto) (1.5-3.5) 10^3/uL [place] # (Auto) (0.0-1.0) 10^3/uL Eos # (Auto) (0.0-0.7) 10^3/uL Baso # (Auto) (0.0-0.1) 10^3/uL Absolute Nucleated RBC x10^3/uL Nucleated RBC % /100WBC Manual Slide Review WBC Morphology (NORMAL) Platelet Estimate (NORMAL) Platelet Morphology (NORMAL) RBC Morph Micro Appear (NORMAL) Sodium (135-145) mmol/L Potassium (3.5-5.0) mmol/L Chloride (101-111) mmol/L Carbon Dioxide (21-32) mmol/L Anion Gap (6-13) BUN (6-20) mg/dL Creatinine (0.4-1.0) mg/dL Estimated GFR (MDRD) (>89) Glucose (70-100) mg/dL Calcium (8.5-10.3) mg/dL Total Bilirubin (0.2-1.0) mg/dL AST (10-42) IU/L ALT (10-60) IU/L Alkaline Phosphatase (42-121) IU/L Total Protein (6.7-8.2) g/dL Albumin (3.2-5.5) g/dL Globulin (2.1-4.2) g/dL Albumin/Globulin Ratio (1.0-2.2) Lipase (22-51) U/L [place] 125 Antigen (0.0-35.0) U/mL Urine Color YELLOW Urine Clarity CLEAR (CLEAR) Urine pH 5.5 (5.0-7.5) PH Ur Specific [place] >=1.030 H (1.002-1.030) Urine Protein >=300 H (NEGATIVE) mg/dL Urine Glucose (UA) NEGATIVE (NEGATIVE) mg/dL Urine Ketones NEGATIVE (NEGATIVE) mg/dL Urine Occult Blood MODERATE H (NEGATIVE) Urine Nitrite NEGATIVE (NEGATIVE) Urine Bilirubin NEGATIVE (NEGATIVE) Urine Urobilinogen 0.2 (NORMAL) (NORMAL) E.U./dL Ur Leukocyte Esterase NEGATIVE (NEGATIVE) Urine RBC 0-5 (0-5) /HPF Urine WBC 0-3 (0-5) /HPF Ur Squamous Epith Cells MOD Squamous H (<= Few) Urine Bacteria Few (None Seen) /HPF Urine Casts 0-2 Hyaline Casts /LPF Ur Microscopic Review INDICATED Urine Culture Comments NOT INDICATED Urine HCG, Qual NEGATIVE - Diagnostic Imaging Results Diagnostic Imaging Results: positive: Final report reviewed, Read contemporaneously Diagnostic Imaging Results Comments: 15cm and 10cm ovarian cysts, mostly simple. Small free fluid. Impression/Plan - Problem List Problem List: Bilateral ovarian cysts and acute onset of abdominal pain last night--unrelenting. No fevers, no GI sx, no sx. CT without nephrolithiasis or appendicitis. Long hx of these cysts and they were about 10cm in the past so not surprising that they didn't resolve with the end of . Likely they are twisting now causing her abrupt onset of pain. In the past they have been mostly simple with a few septations here and there. Discussed that her cysts are not simple which increases her risk of cancer, if she does have cancer her surgery would be best performed by porcelain slusher-onc which could be arranged. However her cysts haven't changed in the >1y that she has had them so the chance of cancer is low considering this. Normal CA 125. Normal lymph nodes and omentum. Recommended bilateral ovarian cystectomy to treat the cysts and hopefully cure her pain. Surgery may not cure pain. Recommend bilateral salpingectomy for cancer risk reduction, she approves, absolutely she does NOT want more children. Discussed how surgery is done, postop course, and risk including bleeding, infection, trauma to local organs, anesthesia complications, and failure to cure cysts vs. recurring cysts. All questions answered and consent signed.
[2019-12-08] MEDS ORDERED: ePHEDrine 50 MG/ML VIAL IVP PRN (18:44)
[2019-12-08] MEDS ORDERED: NALOXONE 0.4 MG/ML VIAL IVP PRN (18:44)
[2019-12-08] MEDS ORDERED: MORPHINE 2 MG/ML CARPUJECT IVP PRN (18:44)
[2019-12-08] MEDS ORDERED: HYDROmorphone 0.5 MG/0.5 ML SYRINGE IVP PRN (18:44)
[2019-12-08] MEDS ORDERED: METOCLOPRAMIDE 10 MG/2 ML VIAL IVP PRN (18:44)
[2019-12-08] MEDS ORDERED: ONDANSETRON 4 MG/2 ML VIAL IVP PRN (18:44)
[2019-12-08] MEDS ORDERED: ATROPINE ABBOJECT 1 MG/10 ML SYRINGE IVP PRN (18:44)
[2019-12-08] MEDS ORDERED: LACTATED RINGERS 1,000 ML IV SCH (19:00)
[2019-12-08] MEDS ORDERED: LIDOCAINE 1%-EPI 1:100000 20 ML MDV SUBQ ONE (19:20)
[2019-12-08] MEDS ORDERED: BUPIVACAINE 0.5% PF 30 ML VIAL INFIL ONE (19:20)
[2019-12-08] MEDS ORDERED: LACTATED RINGERS 1,000 ML IV ONE (21:45)
[2019-12-08] MEDS ORDERED: SIMETHICONE CHEW 80 MG TABLET PO PRN (21:54)
[2019-12-08] MEDS ORDERED: diphenhydrAMINE 25 MG CAPSULE PO PRN (21:54)
[2019-12-08] MEDS ORDERED: ONDANSETRON ODT 4 MG TABLET TL PRN (21:54)
[2019-12-08] MEDS ORDERED: oxyCODONE 5 MG TABLET PO PRN (21:54)
[2019-12-08] MEDS: fentaNYL 100 MCG/2 ML VIAL IVP PRN ×2 (22:00→22:10)
[2019-12-08] MEDS ORDERED: ACETAMINOPHEN 500 MG TABLET PO SCH (22:00)
--- NOTE | 2019-12-08 22:02 | OPERATIVE REPORT ---
Operative Report - Procedure Note Complications: DOS 12/08/19 Preop: bilateral ovarian cysts, abdominal pain Postop: bilateral ovarian cysts, right adnexal torsion Procedure: lapraroscopic converted to laparotomy with right salpingoophorectomy, left salpingectomy, left ovarian cystectomy Surg: Madelyn Assist: Grave Anesth: general EBL: 40cc UOP: 350cc IVF: 1800cc Complications: none Prophylaxis: SCD Specimens: right ov and tube, left tube and cyst wall Findings: large ovarian cysts, right torsion Dispo: PACU Condition: good
[2019-12-08] MEDS ORDERED: fentaNYL 100 MCG/2 ML VIAL ONE (22:03)
--- NOTE | 2019-12-08 22:47 | ANESTHESIA POST OP EVALUATION ---
Anesthesia Post Eval - Post Anesthesia Eval Vitals: Last Vital Signs Temp 36.3 C L 12/08/19 22:30 Pulse 90 12/08/19 22:30 Resp 19 12/08/19 22:30 BP 125/71 12/08/19 22:30 Pulse Ox 98 12/08/19 22:30 CV Function Including HR & BP: positive: Stable Pain Control: positive: Satisfactory Nausea & Vomiting: positive: Negative Mental Status: positive: Patient Participates Respiratory Status: Airway Patent Hydration Status: Satisfactory
[2019-12-08] MEDS ORDERED: oxyCODONE 5 MG TABLET ONE (23:42)
[2019-12-09] MEDS ORDERED: ONDANSETRON 4 MG/2 ML VIAL IVP PRN (00:20)
[2019-12-09] MEDS ORDERED: SIMETHICONE CHEW 80 MG TABLET PO PRN (00:21)
[2019-12-09] MEDS ORDERED: SODIUM CHLORIDE FLUSH 0.9% 10 ML SYRINGE IVP SCH ×2 (01:00)
[2019-12-09] MEDS: oxyCODONE 5 MG TABLET PO PRN ×2 (02:02→07:43)
[2019-12-09] MEDS ORDERED: IBUPROFEN 600 MG TABLET PO SCH ×2 (03:00)
--- NOTE | 2019-12-09 04:57 | OPERATIVE REPORT ---
DATE OF SERVICE: 12/08/2019 Physician: Violet Joshi MD PREOPERATIVE DIAGNOSES 1. Acute generalized abdominal pain. 2. Bilateral large ovarian cysts. POSTOPERATIVE DIAGNOSIS 1. Acute generalized abdominal pain. 2. Bilateral large ovarian cysts. 3. Torsion of the right adnexa. PROCEDURE PERFORMED 1. Diagnostic laparoscopy with left salpingectomy and drainage of bilateral ovarian cysts. 2. Laparotomy with right salpingo-oophorectomy and left ovarian cystectomy. SURGEON: Violet Joshi MD WINDOWS TECHNICAL SPECIALIST: Jose Soliman MD. ANESTHESIA: General. ESTIMATED BLOOD LOSS: 40 mL URINE OUTPUT: 350 mL INTRAVENOUS FLUIDS: 1800 mL COUNTS: Correct x2. COMPLICATIONS: None apparent. DISPOSITION: Stable to recovery room. PROPHYLAXIS: SCDS to bilateral lower extremities. No antibiotics indicated. SPECIMENS: Right ovary and fallopian tube as well as left fallopian tube and cyst wall sent to pathology. FINDINGS: The patient had 2 large ovarian cysts, each 10-15 cm in size. The right adnexa was twisted at least 2 times on its pedicle. COUNSELING: Patient was seen in the emergency room for abrupt onset of generalized abdominal pain. She was found to have bilateral ovarian cysts on CT. These cysts had been present since her , and even present prior to that. They had not been symptomatic and so she had declined treatment. They were not completely simple in the past on my read of her ultrasounds, and they had not changed over time. The patient was counseled that the cysts are not simple and that there was a possibility of carcinoma; and that if there was cancer, the surgery would be best done by a AUTOMATIC [employer]ESSER oncologist. However, the odds of cancer are not high, given the fact that she has not had any severe progression of disease in the past two years that the cysts have been present. The patient wanted to proceed with surgery here. She was consented. Risks were explained and postoperative course was reviewed. DESCRIPTION OF PROCEDURE: The patient was brought to the operating room, where she was induced with general anesthesia. She was placed in low lithotomy in [facility]. Her arms were stretched out at her sides. Bimanual examination revealed an axial uterus. She was prepped and draped in the usual sterile fashion. A speculum was placed and a single-tooth tenaculum was applied to the anterior lip of the cervix. A 10 mL paracervical block was performed. All local anesthesia was 1:1 mix of 0.5% Marcaine plus 1% lidocaine with epinephrine. She had a 10 mL paracervical block. Uterine manipulator that was then placed into the uterine cavity and the balloon was inflated. The tenaculum was removed. The speculum was removed. The surgeon's gloves were changed. A 10-mm skin incision was made inferior to the umbilicus in anticipation of using an EndoCatch. A 5-mm incision was made in the nipple line in the left upper quadrant. The trocar was introduced into the peritoneal cavity. A Veress needle was placed through the umbilical incision. Opening pressure was low and the abdomen was insufflated to a pressure of 15. A 5-mm trocar was placed in the left upper quadrant. Two more trocars were placed first in the left lower quadrant and then one in the right lower quadrant. All trocars were inserted under direct visualization and all sites were numbed prior to incision. The patient's large ovarian cysts were seen. Peritoneal fluid was aspirated for cytology. The left ovarian cyst was drained. The cyst wall was entered with a LigaSure. The cyst wall could not be dissected off of the ovarian stroma. The right ovarian cyst was then drained. The torsion was evident. The ovary and fallopian tube were untwisted. The fallopian tube was completely necrotic and falling apart. The uteroovarian ligament was transected with a LigaSure, but the infundibulopelvic ligament could not be identified; therefore, the procedure had to be converted to an open case. All instruments were removed from her belly. Her umbilical fascia was closed with an interrupted 0 Vicryl. The trocar incisions skin were closed with 4-0 Monocryl. A scalpel was used to make a Pfannenstiel skin incision 3 cm superior to the pubic symphysis. It was approximately 15 cm in length. This was carried down to the fascia, which was nicked in the midline bilaterally. The fascial incision was extended laterally, sharply. Kochers were placed on the inferior margin of the fascial incision and the fascia was sharply and bluntly dissected off the underlying rectus. Some bleeders on the rectus were encountered and these were bovied. The Kochers were replaced on the superior margin of the fascial incision and the fascia again was bluntly dissected off of the rectus. The rectus was spread in their midline and the peritoneum was bluntly entered. An Isidro retractor was placed. The patient's right ovary was lifted from the incision. The infundibulopelvic ligament was identified and clamped. The specimen was excised with the LigaSure and then the pedicle was oversewn with suture fixation stitch of 0 Vicryl. Good hemostasis resulted. The left ovarian cyst cavity was examined and excrescences were seen. The portion of the ovary with the excrescences was amputated with the LigaSure and sent to pathology. The remaining cyst wall was then dissected away from the ovarian stroma. It was quite densely adherent. There was some stromal bleeding and the ovary was closed with a running layer of 4-0 Monocryl. Hemostasis was good on all of the dissected areas. The Isidro retractor was removed. The fascia was closed with a running layer of 0 Vicryl going from end-to-end. The subcutaneous tissues were irrigated and then reapproximated with interrupted sutures of 2-0 Vicryl. The skin was closed with 4-0 Monocryl in a running subcuticular fashion. All of the incisions were covered with Dermabond. The uterine manipulator was removed. The patient was returned to the supine position prior to waking. TD: 12/08/2019 23:12 HEIDI
[2019-12-09] MEDS ORDERED: ACETAMINOPHEN 500 MG TABLET PO SCH (06:00)
--- NOTE | 2019-12-09 07:06 | PROVIDER PROGRESS NOTE ---
Subjective - Subjective Subjective: Feeling totally better, incisional pain is nothing like the torsion pain was, very happy. Eating well, no nausea. Wants to go home FARIHA. Pain well controlled on oral pills alone. AVSS overall, some episodes of elevated HR Alert, smiling, NAD Abd soft, appropriately tender, not distended. Incisions c/d/i. Discussed home care, f/u in 1w sooner PRN. Patient OK FOR DISCHARGE once she voids and ambulates. Objective - Vital Signs/Intake & Output Vital Signs: Vital Signs x48h Temp Pulse Resp BP Pulse Ox 12/09/19 05:57 98.8 F 113 H 18 95 12/09/19 04:39 98.8 F 113 H 18 112/63 95 12/09/19 02:41 103 H 18 138/87 H 12/09/19 01:41 100.0 F H 103 H 16 134/79 H 95 12/09/19 00:30 100 18 139/84 H 12/09/19 00:00 98.2 F 93 18 143/81 H 96 12/08/19 23:45 94 18 148/84 H 97 12/08/19 23:26 91 18 131/77 H 98 Intake & Output: Intake & Output 12/06/19 12/07/19 12/08/19 12/09/19 23:59 23:59 23:59 23:59 Intake Total 2120 Output Total 200 2275 Balance 1920 -5 - Lab Results Fish Bones: 12/08/19 13:52 12/08/19 13:52 Other Labs: Lab Results x24hrs 12/08/19 12/08/19 12/08/19 Range/Units 13:52 13:52 13:52 WBC 23.3 H (4.8-10.8) x10^3/uL RBC 5.11 (4.20-5.40) 10^6/uL Hgb 15.0 (12.0-16.0) g/dL Hct 46.4 (37.0-47.0) % MCV 90.8 (81.0-99.0) fL MCH 29.4 (27.0-31.0) pg MCHC 32.3 (32.0-36.0) g/dL RDW 13.8 (12.0-15.0) % Plt Count 509 H (130-450) 10^3/uL MPV 9.4 (7.9-10.8) fL Neut # (Auto) 21.0 H (1.5-6.6) 10^3/uL Lymph # (Auto) 1.2 L (1.5-3.5) 10^3/uL [place] # (Auto) 0.7 (0.0-1.0) 10^3/uL Eos # (Auto) 0.0 (0.0-0.7) 10^3/uL Baso # (Auto) 0.1 (0.0-0.1) 10^3/uL Absolute Nucleated RBC 0.00 x10^3/uL Nucleated RBC % 0.0 /100WBC Manual Slide Review Indicated WBC Morphology (NORMAL) Platelet Estimate INCREASED (>450,000) (NORMAL) Platelet Morphology NORMAL APPEARANCE (NORMAL) RBC Morph Micro Appear NORMAL APPEARANCE (NORMAL) Sodium 133 L (135-145) mmol/L Potassium 4.1 (3.5-5.0) mmol/L Chloride 98 L (101-111) mmol/L Carbon Dioxide 22 (21-32) mmol/L Anion Gap 13.0 (6-13) BUN 10 (6-20) mg/dL Creatinine 0.7 (0.4-1.0) mg/dL Estimated GFR (MDRD) 95 (>89) Glucose 135 H (70-100) mg/dL Calcium 9.0 (8.5-10.3) mg/dL Total Bilirubin 0.4 (0.2-1.0) mg/dL AST 21 (10-42) IU/L ALT 29 (10-60) IU/L Alkaline Phosphatase 68 (42-121) IU/L Total Protein 7.9 (6.7-8.2) g/dL Albumin 4.1 (3.2-5.5) g/dL Globulin 3.8 (2.1-4.2) g/dL Albumin/Globulin Ratio 1.1 (1.0-2.2) Lipase 24 (22-51) U/L CA 125 Antigen 15.4 (0.0-35.0) U/mL Urine Color Urine Clarity (CLEAR) Urine pH (5.0-7.5) PH Ur Specific [place] (1.002-1.030) Urine Protein (NEGATIVE) mg/dL Urine Glucose (UA) (NEGATIVE) mg/dL Urine Ketones (NEGATIVE) mg/dL Urine Occult Blood (NEGATIVE) Urine Nitrite (NEGATIVE) Urine Bilirubin (NEGATIVE) Urine Urobilinogen (NORMAL) E.U./dL Ur Leukocyte Esterase (NEGATIVE) Urine RBC (0-5) /HPF Urine WBC (0-5) /HPF Ur Squamous Epith Cells (<= Few) Urine Bacteria (None Seen) /HPF Urine Casts /LPF Ur Microscopic Review Urine Culture Comments Urine HCG, Qual 12/08/19 Range/Units 13:10 WBC (4.8-10.8) x10^3/uL RBC (4.20-5.40) 10^6/uL Hgb (12.0-16.0) g/dL Hct (37.0-47.0) % MCV (81.0-99.0) fL MCH (27.0-31.0) pg MCHC (32.0-36.0) g/dL RDW (12.0-15.0) % Plt Count (130-450) 10^3/uL MPV (7.9-10.8) fL Neut # (Auto) (1.5-6.6) 10^3/uL Lymph # (Auto) (1.5-3.5) 10^3/uL [place] # (Auto) (0.0-1.0) 10^3/uL Eos # (Auto) (0.0-0.7) 10^3/uL Baso # (Auto) (0.0-0.1) 10^3/uL Absolute Nucleated RBC x10^3/uL Nucleated RBC % /100WBC Manual Slide Review WBC Morphology (NORMAL) Platelet Estimate (NORMAL) Platelet Morphology (NORMAL) RBC Morph Micro Appear (NORMAL) Sodium (135-145) mmol/L Potassium (3.5-5.0) mmol/L Chloride (101-111) mmol/L Carbon Dioxide (21-32) mmol/L Anion Gap (6-13) BUN (6-20) mg/dL Creatinine (0.4-1.0) mg/dL Estimated GFR (MDRD) (>89) Glucose (70-100) mg/dL Calcium (8.5-10.3) mg/dL Total Bilirubin (0.2-1.0) mg/dL AST (10-42) IU/L ALT (10-60) IU/L Alkaline Phosphatase (42-121) IU/L Total Protein (6.7-8.2) g/dL Albumin (3.2-5.5) g/dL Globulin (2.1-4.2) g/dL Albumin/Globulin Ratio (1.0-2.2) Lipase (22-51) U/L [place] 125 Antigen (0.0-35.0) U/mL Urine Color YELLOW Urine Clarity CLEAR (CLEAR) Urine pH 5.5 (5.0-7.5) PH Ur Specific [place] >=1.030 H (1.002-1.030) Urine Protein >=300 H (NEGATIVE) mg/dL Urine Glucose (UA) NEGATIVE (NEGATIVE) mg/dL Urine Ketones NEGATIVE (NEGATIVE) mg/dL Urine Occult Blood MODERATE H (NEGATIVE) Urine Nitrite NEGATIVE (NEGATIVE) Urine Bilirubin NEGATIVE (NEGATIVE) Urine Urobilinogen 0.2 (NORMAL) (NORMAL) E.U./dL Ur Leukocyte Esterase NEGATIVE (NEGATIVE) Urine RBC 0-5 (0-5) /HPF Urine WBC 0-3 (0-5) /HPF Ur Squamous Epith Cells MOD Squamous H (<= Few) Urine Bacteria Few (None Seen) /HPF Urine Casts 0-2 Hyaline Casts /LPF Ur Microscopic Review INDICATED Urine Culture Comments NOT INDICATED Urine HCG, Qual NEGATIVE
[2019-12-09 07:19] LABS: BASOPHILS # (AUTO) 0.1 10^3/uL (0.0-0.1); BASOPHILS % (AUTO) 0.3 %; HGB - HEMOGLOBIN 12.9 g/dL (12.0-16.0); LYMPHOCYTES # (AUTO) 1.6 10^3/uL (1.5-3.5); LYMPHOCYTES % (AUTO) 7.7 %; MEAN CORPUSCULAR HEMOGLOBIN 29.4 pg (27.0-31.0); MEAN CORPUSCULAR HGB CONC 32.5 g/dL (32.0-36.0); MEAN CORPUSCULAR VOLUME 90.4 fL (81.0-99.0); MEAN PLATELET VOLUME 9.5 fL (7.9-10.8); MONOCYTES # (AUTO) 1.3 10^3/uL (0.0-1.0); MONOCYTES % (AUTO) 5.9 %; NEUTROPHILS # (AUTO) 18.2 10^3/uL (1.5-6.6); NEUTROPHILS % (AUTO) 85.3 %; PLT - PLATELET COUNT 479 10^3/uL (130-450); RED BLOOD COUNT 4.39 10^6/uL (4.20-5.40); RED CELL DISTRIBUTION WIDTH 14.1 % (12.0-15.0); WHITE BLOOD COUNT 21.3 x10^3/uL (4.8-10.8)
[2019-12-09 07:43] LABS: PLATELET ESTIMATE, MANUAL INCREASED (>450,000) (NORMAL)
[2019-12-09 08:52] VITALS: BP 119/69
[2019-12-09] MEDS ORDERED: DOCUSATE SODIUM 100 MG CAPSULE PO SCH ×2 (09:00)
[2019-12-09] MEDS ORDERED: NICOTINE 14 MG PATCH TOP SCH (09:00)
--- NOTE | 2020-01-06 09:20 | PROVIDER PROGRESS NOTE ---
Subjective - Subjective Subjective: Date of surgery 12/07 Date of discharge 12/08 Patient was discharged home after meeting PACU criteria. F/u in clinic. Objective - Lab Results Fish Bones: 12/09/19 06:51 12/08/19 13:52
== END 2019-12-09 08:30 | disposition home or self-care (01) ==
LOC: ED 12:56 → SDS 17:00 → ED 18:15 → MS2 22:33 → SDS 12-09 08:30
PROVIDERS: ATTEND Obstetrics & Gynecology
PROC: 0UT64ZZ Resection of Left Fallopian Tube, Percutaneous Endoscopic Approach (ICD-10-PCS; principal; 2019-12-08 18:00)
DX: N83.53 Torsion of ovary, ovarian pedicle and fallopian tube (principal); D27.1 Benign neoplasm of left ovary; N83.8 Other noninflammatory disorders of ovary, fallopian tube and broad ligament; I10 Essential (primary) hypertension; K21.9 Gastro-esophageal reflux disease without esophagitis; F17.210 Nicotine dependence, cigarettes, uncomplicated; E66.9 Obesity, unspecified; Z79.1 Long term (current) use of non-steroidal anti-inflammatories (NSAID); Z79.899 Other long term (current) drug therapy; Z68.34 Body mass index [BMI] 34.0-34.9, adult
CPT/HCPCS: 36415; 58661; 58720; 58925; 74177; 80053; 81001; 81025; 83690; 85025; 86304; 88108; 88305; 96361; 96374; 96376; 99284; 99285; A9270; J0131; J1170; J7120; Q9967; 81003; 87086

== ENCOUNTER 2019-12-15 15:58 | Emergency (ER) | payer MEDICAID ==
--- NOTE | 2019-12-15 17:21 | ED Physician Documentation ---
History of Present Illness - Stated complaint Stated Complaint: INCISION CHECK - Chief complaint Chief Complaint: General - History obtained from History obtained from: Patient - Additonal information Additional information: 34yo Woman had surgery for ovarian torsion a week ago. Her Pfannenstiel incision started leaking and becoming more tender today and is worried about infection. No fevers. 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) Derm: None - Past Surgical History Past Surgical History: No - Present Medications Home Medications: Ambulatory Orders Medication Instructions Recorded Confirmed Acetaminophen [Tylenol] 650 mg PO Q4HR PRN #50 tablet 09/19/19 Ibuprofen [Motrin] 600 mg PO Q6H PRN #30 tablet 09/19/19 Nicotine 14 mg Patch [Nicoderm] 1 patch TOP DAILY #30 patch 09/19/19 oxyCODONE [Roxicodone] 1 - 2 tab PO ONCE PRN #15 tablet 12/15/19 - Allergies Allergies/Adverse Reactions: Allergies Allergy/AdvReac Type Severity Reaction Status Date / Time codeine AdvReac Mild Nausea Verified 12/08/19 13:09 - Social History Does the pt smoke?: No Smoking Status: Current every day smoker (5-10 cigs/day; denies other drugs, previously neg UTox) Does the pt drink ETOH?: No Does the pt have substance abuse?: No - Immunizations Immunizations are current?: Yes - POLST Patient has POLST: No PD ED PE NORMAL - Vitals Vital signs reviewed: Yes - General General: Alert and oriented X 3, No acute distress - Abdomen Abdomen: Other (Laparoscopic sites look fine, the Pfannenstiel incision is very slightly red and just to the right of midline there is a little bit of drainage which looks serous.) - Back Back: No CVA TTP, No spinal TTP - Derm Derm: Normal color, No rash Results - Vitals Vitals: Vital Signs - 24 hr 12/15/19 12/15/19 16:14 17:14 Temperature 36.6 C 37.4 C Heart Rate 112 H 99 Respiratory 16 16 Rate Blood Pressure 154/89 H 150/85 H O2 Saturation 98 100 Oxygen O2 Source Room air - Labs Labs: Laboratory Tests 12/15/19 12/15/19 17:25 17:25 WBC 16.0 H RBC 3.87 L Hgb 11.3 L Hct 34.5 L MCV 89.1 MCH 29.2 MCHC 32.8 RDW 13.6 Plt Count 435 MPV 9.6 Neut # (Auto) 12.1 H Lymph # (Auto) 2.6 Cedar # (Auto) 0.9 Eos # (Auto) 0.2 Baso # (Auto) 0.1 Absolute Nucleated RBC 0.00 Nucleated RBC % 0.0 Sodium 138 Potassium 3.5 Chloride 104 Carbon Dioxide 23 Anion Gap 11.0 BUN 6 Creatinine 0.5 Estimated GFR (MDRD) 140 Glucose 100 Calcium 9.0 PD MEDICAL DECISION MAKING - ED course ED course: 34-year-old woman had some drainage from her incision. It really did not look infected. Note made that her white blood cell count was 16,000 and this was somewhat worrisome, of her going back in the chart it looks like she has a chronic leukocytosis. This seems to be in the middle of the range for her and as such is not too concerning. The CT did not show any evidence of infection. It did confirm a postoperative seroma. She has follow-up with her physician in 4 days to recheck. She is advised to return if worse in the meantime. Also to consider following up with her primary care physician for evaluation of the chronic leukocytosis. Departure - Departure Disposition: 01 Home, Self Care Clinical Impression: Post-operative pain, Seroma Condition: Good Record reviewed to determine appropriate education?: Yes Instructions: ED Seroma Post Op Prescriptions: oxyCODONE [Roxicodone] 1 - 2 tab PO ONCE PRN #15 tablet PRN Reason: Pain Comments: As discussed your white blood cell count was up today which is concerning for an infection but when I went back in the chart it looks like this is a chronic phenomenon and your white blood cell count is always high. Please discuss this with your primary care physician who may want to perform further work-up or consultations on this. Return if worse or if you run a fever.
[2019-12-15 17:31] LABS: BASOPHILS # (AUTO) 0.1 10^3/uL (0.0-0.1); BASOPHILS % (AUTO) 0.7 %; EOSINOPHILS # (AUTO) 0.2 10^3/uL (0.0-0.7); EOSINOPHILS % (AUTO) 1.2 %; HGB - HEMOGLOBIN 11.3 g/dL (12.0-16.0); LYMPHOCYTES # (AUTO) 2.6 10^3/uL (1.5-3.5); LYMPHOCYTES % (AUTO) 16.4 %; MEAN CORPUSCULAR HEMOGLOBIN 29.2 pg (27.0-31.0); MEAN CORPUSCULAR HGB CONC 32.8 g/dL (32.0-36.0); MEAN CORPUSCULAR VOLUME 89.1 fL (81.0-99.0); MEAN PLATELET VOLUME 9.6 fL (7.9-10.8); MONOCYTES # (AUTO) 0.9 10^3/uL (0.0-1.0); MONOCYTES % (AUTO) 5.4 %; NEUTROPHILS # (AUTO) 12.1 10^3/uL (1.5-6.6); NEUTROPHILS % (AUTO) 75.5 %; PLT - PLATELET COUNT 435 10^3/uL (130-450); RED BLOOD COUNT 3.87 10^6/uL (4.20-5.40); RED CELL DISTRIBUTION WIDTH 13.6 % (12.0-15.0)
[2019-12-15] MEDS ORDERED: IOVERSOL 320 100 ML VIAL IVP ONE ×2 (17:34→18:45)
[2019-12-15 17:40] LABS: CREATININE 0.5 mg/dL (0.4-1.0)
--- NOTE | 2019-12-15 19:02 | CT Report ---
PROCEDURE: PELVIS W INDICATIONS: IV only post sugery pain CONTRAST: IV CONTRAST: Optiray 320 ml: 100 PO CONTRAST: *NO PO CONTRAST TECHNIQUE: After the administration of oral contrast and intravenous contrast, 5 mm thick sections acquired from the iliac crests to the symphysis. 5 mm thick coronal and sagittal reformats were acquired. For ra diation dose reduction, the following was used: automated exposure control, adjustment of mA and/or kV according to patient size. COMPARISON: 12/08/2019 FINDINGS: Image quality: Excellent. Peritoneum and bowel: Contrast enhanced bowel loops demonstrate normal wall thickness and caliber. No free fluid or air. Genitourinary: Bladder wall thickness is normal. There is been interval removal of a large left ova justo cystic mass. In the left adnexa, in the expected location of the left ovary, there is an ovoid, mildly hyperdense mass measuring roughly 8.5 x 4.1 x 4.4 cm. There is mild inflammation along the cou rse of the left renal vein. Trace fluid posteriorly in the adnexa. No significant free fluid in the p rony. The uterus and right ovary appear normal. No extraluminal gas. Nodes and vessels: No iliac, pelvic, or inguinal adenopathy. Iliac vessels demonstrate normal size and enhancement. Bones: No suspicious bony lesions. Miscellaneous: No inguinal hernias. Mild edema along the anterior subcutaneous tissues, expected po st surgery. IMPRESSION: 1. 8.5 cm left adnexal hyperdense mass/fluid collection. This is likely postsurgical hematoma/seroma. Abscess is felt less likely given lack of significant surrounding inflammatory change, but not entir sisi excluded. 2. Otherwise expected postsurgical appearance of the pelvis. Reviewed by: Karol Buitrago MD on 12/15/2019 7:01 PM PDT Approved by: Karol Buitrago MD on 12/15/2019 7:01 PM PDT Station ID: [id number]
[2019-12-15 19:16] VITALS: BP 149/92
== END 2019-12-15 19:28 | disposition home or self-care (01) ==
LOC: ED 15:58
DX: L76.34 Postprocedural seroma of skin and subcutaneous tissue following other procedure (principal); I10 Essential (primary) hypertension; F17.210 Nicotine dependence, cigarettes, uncomplicated
CPT/HCPCS: 36415; 72193; 80048; 85025; 99283; 99284; Q9967

== ENCOUNTER 2020-04-13 14:12 | Emergency (ER) | payer MEDICAID ==
[2020-04-13 14:25] VITALS: BP 139/93
[2020-04-13] MEDS ORDERED: CHERRY SYRUP 10 ML UDC PO ONE (14:37)
[2020-04-13] MEDS ORDERED: KETOROLAC 60 MG/2 ML VIAL IM STA (14:37)
[2020-04-13] MEDS ORDERED: DEXAMETHASONE 10 MG/ML VIAL PO STA (14:37)
--- NOTE | 2020-04-13 14:38 | ED Physician Documentation ---
PD HPI BACK PAIN - Stated complaint Stated Complaint: BACK PX - Chief complaint Chief Complaint: Back Pain - History obtained from History obtained from: Patient - History of Present Illness Timing - onset: Last night Timing - duration: Hours Timing - details: Abrupt onset, Still present Location: Lower, Left Quality: Pain, Spasm, Sharp Associated symptoms: No: Fever, Weakness, Numbness, Incontinent of urine, Unable to urinate, Hematuria, Incontinent of stool Improves with: Rest, Meds Worsened by: Movement Contributing factors: Lifting, Twisting Similar symptoms before: Diagnosis (back spasm) Recently seen: Not recently seen - Additional information Additional information: 34-year-old female with a recent history of ovarian torsion and will ooverectomy several months ago was in her home lifted 6 2 L bottles of water and set them down and when she went to sit them down she had a sudden spasm of pain in the left lower back. This pain is present whenever she moves her back and she did get some relief with the use of heat but when she went to get up this morning she had severe pain she is come to the emergency department today with pain anytime she goes to move or stand up. She denies any urinary symptoms she denies any difficulty with defecation she denies perineal anesthesia weakness or numbness. Review of Systems Constitutional: denies: Fever Eyes: denies: Decreased vision Ears: denies: Ear pain Nose: denies: Congestion Throat: denies: Sore throat Cardiac: denies: Chest pain / pressure Respiratory: denies: Dyspnea, Cough GI: denies: Abdominal Pain, Nausea, Vomiting, Diarrhea : denies: Dysuria, Frequency Skin: denies: Rash Musculoskeletal: reports: Back pain. 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) HEENT: Chronic vision loss Psych: None Musculoskeletal: None Derm: None - Past Surgical History Past Surgical History: No /DYE BOX OPERATOR: Oophrectomy - Present Medications Home Medications: Ambulatory Orders Medication Instructions Recorded Confirmed Acetaminophen [Tylenol] 650 mg PO Q4HR PRN #50 tablet 09/19/19 Ibuprofen [Motrin] 600 mg PO Q6H PRN #30 tablet 09/19/19 Nicotine 14 mg Patch [Nicoderm] 1 patch TOP DAILY #30 patch 09/19/19 oxyCODONE [Roxicodone] 1 - 2 tab PO ONCE PRN #15 tablet 12/15/19 Cyclobenzaprine [Flexeril] 10 mg PO TID PRN #20 tablet 04/13/20 Oxycodone HCl/Acetaminophen 1 - 2 each PO Q6H PRN #14 tablet 04/13/20 [Percocet 5-325 mg Tablet] - Allergies Allergies/Adverse Reactions: Allergies Allergy/AdvReac Type Severity Reaction Status Date / Time codeine AdvReac Mild Nausea Verified 04/13/20 14:19 - Social History Does the pt smoke?: No Smoking Status: Never smoker Does the pt drink ETOH?: No Does the pt have substance abuse?: No - Immunizations Immunizations are current?: Yes - POLST Patient has POLST: No PD ED PE NORMAL - Vitals Vital signs reviewed: Yes (Hypertensive) - General General: Alert and oriented X 3, Well developed/nourished, Other (Appears to be in pain and nearly in tears.) - HEENT HEENT: Atraumatic, PERRL, EOMI - Respiratory Respiratory: No respiratory distress - Back Back: No CVA TTP, No spinal TTP, Other (There is no midline point tenderness there is point tenderness to the paraspinous muscles lateral to the spine and the left lower lumbar area.) - Derm Derm: Normal color, Warm and dry, No rash - Extremities Extremities: No deformity, No edema - Neuro Neuro: Alert and oriented X 3, lift team technician 2-12 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, No motor deficit, No sensory deficit, Normal speech Eye Opening: Spontaneous Motor: Obeys Commands Verbal: Oriented GCS Score: 15 - Psych Psych: Normal mood, Normal affect Results - Vitals Vitals: Vital Signs - 24 hr 04/13/20 14:19 Temperature 36.6 C Heart Rate 81 Respiratory 16 Rate Blood Pressure 139/93 H O2 Saturation 99 Oxygen O2 Source Room air PD MEDICAL DECISION MAKING - ED course Complexity details: reviewed old records, considered differential, d/w patient ED course: 34-year-old female with acute lumbar muscle spasm is administered dexamethasone 10 mg orally and Toradol 60 mg IM we will place her on some Percocet and Flexeril I have encouraged patient to ice, hydrate and stretch and avoid using the heating pack. Departure - Departure Disposition: 01 Home, Self Care Clinical Impression: Lumbar paraspinal muscle spasm Condition: Stable Instructions: ED Spasm Back No Trauma Follow-Up: [facility] [Provider Group] Prescriptions: Cyclobenzaprine [Flexeril] 10 mg PO TID PRN #20 tablet PRN Reason: Spasms Oxycodone HCl/Acetaminophen [Percocet 5-325 mg Tablet] 1 - 2 each PO Q6H PRN #14 tablet PRN Reason: pain Forms: Activity restrictions Discharge Date/Time: 04/13/20 14:59
== END 2020-04-13 14:59 | disposition home or self-care (01) ==
LOC: ED 14:12
DX: M62.830 Muscle spasm of back (principal); I10 Essential (primary) hypertension
CPT/HCPCS: 96372; 99282; 99284; A9270

== ENCOUNTER 2020-07-26 08:04 | Outpatient (CLI) | payer MEDICAID ==
[2020-07-26 08:25] LABS: BASOPHILS # (AUTO) 0.1 10^3/uL (0.0-0.1); BASOPHILS % (AUTO) 0.7 %; EOSINOPHILS # (AUTO) 0.4 10^3/uL (0.0-0.7); EOSINOPHILS % (AUTO) 2.6 %; HGB - HEMOGLOBIN 14.7 g/dL (12.0-16.0); LYMPHOCYTES # (AUTO) 3.2 10^3/uL (1.5-3.5); LYMPHOCYTES % (AUTO) 21.9 %; MEAN CORPUSCULAR HEMOGLOBIN 29.8 pg (27.0-31.0); MEAN CORPUSCULAR HGB CONC 32.7 g/dL (32.0-36.0); MEAN CORPUSCULAR VOLUME 91.1 fL (81.0-99.0); MEAN PLATELET VOLUME 9.6 fL (7.9-10.8); MONOCYTES % (AUTO) 6.9 %; NEUTROPHILS # (AUTO) 9.7 10^3/uL (1.5-6.6); NEUTROPHILS % (AUTO) 67.6 %; PLT - PLATELET COUNT 378 10^3/uL (130-450); RED BLOOD COUNT 4.94 10^6/uL (4.20-5.40); RED CELL DISTRIBUTION WIDTH 14.2 % (12.0-15.0); WHITE BLOOD COUNT 14.4 x10^3/uL (4.8-10.8)
== END 2020-07-26 08:05 | disposition home or self-care (01) ==
LOC: LAB 08:04
PROVIDERS: ATTEND Obstetrics & Gynecology
DX: Z01.812 Encounter for preprocedural laboratory examination (principal); R87.613 High grade squamous intraepithelial lesion on cytologic smear of cervix (HGSIL); Z20.822 Contact with and (suspected) exposure to COVID-19
CPT/HCPCS: 36415; 85025

== ENCOUNTER 2020-07-31 07:25 | Day surgery (SDC) | payer MEDICAID ==
[2020-07-31] MEDS ORDERED: LACTATED RINGERS 1,000 ML IV ONE ×2 (07:36→10:42)
[2020-07-31 07:50] LABS: HCG UR QUAL NEGATIVE
[2020-07-31] MEDS ORDERED: ATROPINE ABBOJECT 1 MG/10 ML SYRINGE IVP PRN (09:06)
[2020-07-31] MEDS ORDERED: METOCLOPRAMIDE 10 MG/2 ML VIAL IVP PRN (09:06)
[2020-07-31] MEDS ORDERED: fentaNYL 100 MCG/2 ML VIAL IVP PRN (09:06)
[2020-07-31] MEDS ORDERED: ONDANSETRON 4 MG/2 ML VIAL IVP PRN (09:06)
[2020-07-31] MEDS ORDERED: NALOXONE 0.4 MG/ML VIAL IVP PRN (09:06)
[2020-07-31] MEDS ORDERED: ePHEDrine 50 MG/ML VIAL IVP PRN (09:06)
[2020-07-31] MEDS ORDERED: HYDROmorphone 0.5 MG/0.5 ML SYRINGE IVP PRN (09:06)
[2020-07-31] MEDS ORDERED: MORPHINE 2 MG/ML CARPUJECT IVP PRN (09:06)
--- NOTE | 2020-07-31 09:06 | ANESTHESIA ---
Pre-Anesthesia VS, & Labs - Diagnosis cervical dysplasia - Procedure colposcopy, LEEP Vital Signs: Temp Pulse Resp BP Pulse Ox 36.4 C L 114 H 16 151/105 H 98 07/31/20 07:40 07/31/20 07:40 07/31/20 07:40 07/31/20 07:40 07/31/20 07:40 Height: 5 ft 3 in Weight (kg): 104 kg Body Mass Index: 40.6 BMI Classification: Morbidly Obese - NPO >8 hours - Is Patient ?: No - Lab Results Current Lab Results: Laboratory Tests 07/31/20 08:31: POC Whole Bld Glucose 85 Home Medications and Allergies Allergies/Adverse Reactions: Allergies Allergy/AdvReac Type Severity Reaction Status Date / Time codeine AdvReac Mild Nausea, Verified 07/26/20 10:48 hives Anes History & Medical History - Anesthetic History Anesthesia Complications: reports: No previous complications, Difficult airway Family history of Anesthesia Complications: Denies Family history of Malignant Hyperthermia: Denies - Medical History Cardiovascular: reports: Hypertension, Other Pulmonary: reports: None Gastrointestinal: reports: None, GERD Urinary: reports: None Neuro: reports: None Musculoskeletal: reports: None Endocrine/Autoimmune: reports: Other Blood Disorders: reports: None Skin: reports: None Smoking Status: Never smoker - Surgical History Gynecologic: reports: Oophrectomy Exam General: Alert, Oriented x3, Cooperative Dental: WNL Mouth Openin Fingerbreadth Neck Mobility: Normal Mallampati classification: II Thyromental Distance: 4-6 cm Respiratory: Lungs clear Cardiovascular: Regular rate Abdomen: Normal bowel sounds Extremities: No clubbing Neurological: Normal gait Mental/Cognitive Status: Alert/Oriented X3 Cognitive Status: Within normal limits Plan Anesthesia Type: General Consent for Procedure(s) Verified and Reviewed: Yes Code Status: Attempt Resuscitation ASA classification: 3-Severe systemic disease Is this case an emergency?: No
[2020-07-31] MEDS ORDERED: KETAMINE 500 MG/10 ML VIAL ONE (09:13)
[2020-07-31] MEDS ORDERED: MIDAZOLAM 2 MG/2 ML VIAL ONE (09:13)
[2020-07-31] MEDS ORDERED: PROPOFOL 200 MG/20 ML VIAL IVP ONE ×2 (09:13→09:16)
[2020-07-31] MEDS ORDERED: SODIUM CHLORIDE 0.9% 10 ML VIAL IVP ONE (09:18)
[2020-07-31] MEDS ORDERED: KETOROLAC 30 MG/ML VIAL ONE (09:35)
[2020-07-31] MEDS ORDERED: ONDANSETRON 4 MG/2 ML VIAL ONE (09:35)
[2020-07-31] MEDS ORDERED: DEXAMETHASONE 4 MG/ML VIAL ONE (09:35)
[2020-07-31] MEDS ORDERED: LIDOCAINE 1%-EPI 1:100000 20 ML MDV SUBQ ONE ×2 (09:49)
[2020-07-31] MEDS ORDERED: FERRIC SUBSULFATE 8 ML SOLUTION (FOR OR) TOP ONE ×2 (09:50)
[2020-07-31] MEDS ORDERED: BUPIVACAINE 0.5% PF 30 ML VIAL ONE (09:51)
[2020-07-31] MEDS ORDERED: LACTATED RINGERS 1,000 ML IV SCH (10:00)
[2020-07-31] MEDS ORDERED: oxyCODONE 5 MG TABLET PO PRN (10:41)
--- NOTE | 2020-07-31 10:44 | OPERATIVE REPORT ---
Operative Report - General Procedure Date: 07/31/20 Planned Procedure: Loop Electrical Excision Procedure (LEEP) under anesthesia Pre-Op Diagnosis: High grade cervical dysplasia Procedure Performed: Loop Electrical Excision Procedure (LEEP) under anesthesia Post Op Diagnosis: Same - Procedure Note Primary Surgeon: Peri Strong Anesthesia Provider: Charla Rashid CRNA Anesthesia Technique: Local, Moderate sedation Pathology: LEEP biopsy in 8 samples: 1) Anterior ectocervix 2) Posterior ectocervix 3) Right lateral ectocervix 4) Left lateral ectocervix 5) Anterior endocervix 6) Mid endocervix 7) Posterior endocervix 8) endocervical curettage Estimated Blood Loss (mL): 20 Urine Output (mL): 0 (In an out catheterization, estimated 200 ml) Indications: Patient is a 34 yo female with high grade cervical dysplasia on pap smear requiring LEEP conization. Anxiety level precluded conducting LEEP in outpatient clinic setting. Patient opted to proceed under conscious sedation. Findings: Large, patulous cervix with 1 cm smooth nodule at 8:00 with appearance of nabothians cyst but with solid composition. Large area of poor Lugol's uptake. Stage II cystocele noted with Valsalva and moderate rectocele/enterocele. Uterus small and mobile without palpable adnexal masses. Complications: none - Other Other Information/Narrative: The patient was brought to the OR and positioned in supine position. She underwent conscious sedation. She was then placed in the dorsal lithotomy position. She was prepped and draped in the usual sterile fashion appropriate for procedure. A grounding pad was placed on the patients right anterior thigh. Patient has previously undergone sterilization. A time out was performed, correctly identifying the patient and the LEEP procedure. At this time, a bivalved nonconductive speculum was placed in the vagina. Lugol's solution was painted along the entire cervix and vaginal wall. Areas of non-uptake were noted to be around the entire squamocolumnar junction. Approximately 20 mL of 1% lidocaine with epinephrine mixed with 0.5% bupivicaine in a 50;50 solution was injected circumferentially along the cervix. Cervix was large and patulous with a large area of decreased Lugols uptake. A large (10x20) loop electrode was used to remove the anterior portion of the cervix and a separate posterior specimen of the ectocervix in 2 specimens. The same loop was used to excise a right lateral and then a left lateral ectocervical biopsy, also in two specimens. The 15x10 mm loop electrode was used to obtain a top hat for excision of the endocervix in three parts: anterior, mid, and posterior ectocervix. An endocervical curettage was performed. All specimens, totalling 8 altogether, were sent to pathology. Mid procedure, patient began to leak urine with cough and an in and out catheterization was performed. The bed of the excised cervical tissue along the cervix was cauterized using the rollerball. A generous plug of Monsels solution was placed on the cervical bed. Hemostasis was noted. All instruments were removed from vagina at this point. The patient tolerated the procedure well and without complication. She was brought to the PACU for recovery.
[2020-07-31 11:27] VITALS: BP 125/82
--- NOTE | 2020-07-31 13:19 | ANESTHESIA POST OP EVALUATION ---
Anesthesia Post Eval - Post Anesthesia Eval Vitals: Last Vital Signs Temp 36.5 C 07/31/20 11:26 Pulse 88 07/31/20 11:26 Resp 16 07/31/20 11:26 BP 125/82 H 07/31/20 11:26 Pulse Ox 96 07/31/20 11:26 CV Function Including HR & BP: Stable Pain Control: Satisfactory Nausea & Vomiting: Negative Mental Status: Baseline Respiratory Status: Airway Patent Hydration Status: Satisfactory Anesthesia Complications: None
== END 2020-07-31 07:26 | disposition home or self-care (01) ==
LOC: SDS 07:25
PROVIDERS: ATTEND Obstetrics & Gynecology
PROC: 0UBC7ZZ Excision of Cervix, Via Natural or Artificial Opening (ICD-10-PCS; 2020-07-31)
PROC: 0UDB7ZX Extraction of Endometrium, Via Natural or Artificial Opening, Diagnostic (ICD-10-PCS; principal; 2020-07-31 08:45)
DX: R87.613 High grade squamous intraepithelial lesion on cytologic smear of cervix (HGSIL) (principal); N81.10 Cystocele, unspecified; N81.6 Rectocele; E66.01 Morbid (severe) obesity due to excess calories; Z68.41 Body mass index [BMI] 40.0-44.9, adult; I10 Essential (primary) hypertension
CPT/HCPCS: 57460; 58110; 81025; J7120

== ENCOUNTER 2020-10-15 17:07 | Emergency (ER) | payer OTHER, MEDICAID ==
--- NOTE | 2020-10-15 18:22 | XRAY Report ---
PROCEDURE: Foot 3 View LT INDICATIONS: ran over by wheel chair TECHNIQUE: 3 views of the foot were acquired. COMPARISON: None FINDINGS: Bones: No acute fractures or dislocations. No suspicious bony lesions. Soft tissues: No tibiotalar joint effusion. Achilles tendon appears normal. Mild soft tissue swell ing of the left foot. IMPRESSION: Left foot soft tissue swelling without underlying fracture or dislocation. If there is persistent clinical concern for a radiographically occult fracture, recommend immobilizat ion and repeat imaging in 10 to 14 days. Reviewed by: Doug Mckeon MD on 10/15/2020 6:21 PM PDT Approved by: Doug Mckeon MD on 10/15/2020 6:21 PM PDT Station ID: [id number]
--- NOTE | 2020-10-15 19:32 | ED Physician Documentation ---
History of Present Illness - Stated complaint Stated Complaint: LT FOOT INJ - Chief complaint Chief Complaint: Trauma Ext - Additonal information Additional information: 35-year-old female presents emergency department for evaluation of acute left foot pain. 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 Since then she has had pain at the proximal foot near the ankle. She can bear weight but has a mild limp. No history recent or previous injury to this foot. 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) HEENT: Chronic vision loss Psych: None Musculoskeletal: None Derm: None - Past Surgical History Past Surgical History: No /SLEEVE SETTER: Oophrectomy - Present Medications Home Medications: Ambulatory Orders Medication Instructions Recorded Confirmed Acetaminophen [Tylenol] 650 mg PO Q4HR PRN #50 tablet 09/19/19 07/31/20 Ibuprofen [Motrin] 600 mg PO Q6H PRN #30 tab 10/15/20 - Allergies Allergies/Adverse Reactions: Allergies Allergy/AdvReac Type Severity Reaction Status Date / Time codeine AdvReac Mild Nausea, Verified 10/15/20 17:25 hives - Social History Does the pt smoke?: No Smoking Status: Never smoker Does the pt drink ETOH?: No Does the pt have substance abuse?: No - Immunizations Immunizations are current?: Yes - POLST Patient has POLST: No PD ED PE EXPANDED - General General: Alert, No acute distress - Extremities Extremities: Left foot (tenderness and welling on dorsum of foot, jsut distal to ankle. Normal inversion, everasion. FULL ROM. no ecchymposis. Bear 90% weight . mildly antalgic gait) Results - Vitals Vitals: Vital Signs - 24 hr 10/15/20 17:25 Temperature 36.5 C Heart Rate 90 Respiratory 16 Rate Blood Pressure 140/94 H O2 Saturation 98 Oxygen O2 Source Room air - Rads (name of study) left foot xr Radiology: Final report received (No acute fracture or dislocation.) PD MEDICAL DECISION MAKING - ED course Complexity details: reviewed results, d/w patient, d/w family ED course: 35-year-old female here with acute left foot pain after a patient at her job accidentally sat in a wheelchair which was on her foot. X-ray does not reveal any obvious fracture. She can bear nearly full weight. I suspect the contusion at this point. Recommended rice precautions Rivera wrap given. 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 Further release from work will need to be filled out by the walk-in clinic providers or her primary care provider. Appropriate L&I forms filled out. # [id number] Departure - Departure Disposition: 01 Home, Self Care Clinical Impression: Contusion of left foot Qualifiers: Encounter type: initial encounter Qualified Code(s): S90.32XA - Contusion of left foot, initial encounter Condition: Stable Record reviewed to determine appropriate education?: Yes Instructions: ED Contusion Lower Extr Ch Prescriptions: Ibuprofen [Motrin] 600 mg PO Q6H PRN #30 tab PRN Reason: Pain Comments: Lillie you were seen in the ER today for acute left foot pain. The x-ray of your foot does not show any broken bones. What likely happened is that you have bruising within the muscles and ligaments after the wheelchair rolled over it. I would like you to wear the Rivera bandage to help with compression. Please take the ibuprofen with food 2-3 times a day. Icing the foot over the next 24 to 48 hours will be most beneficial. I would like you to follow-up with either your primary care provider or a walk- in provider in 4 days time. If your symptoms are not markedly better and you are not able to walk without pain further work release may be given but at this time I am not returning you to duty as is not likely your job could give you a sitting position. If at any point your symptoms are worsening please return immediately to the ER for a second evaluation.
[2020-10-15 19:46] VITALS: BP 129/86
== END 2020-10-15 19:47 | disposition home or self-care (01) ==
LOC: ED 17:07
DX: S90.32XA Contusion of left foot, initial encounter (principal); W22.8XXA Striking against or struck by other objects, initial encounter; Y92.129 Unspecified place in nursing home as the place of occurrence of the external cause; Y99.0 Civilian activity done for income or pay; I10 Essential (primary) hypertension
CPT/HCPCS: 1040M; 73630; 99283

== ENCOUNTER 2021-01-22 00:45 | Emergency (ER) | payer MEDICAID ==
[2021-01-22 00:59] VITALS: BP 149/97
[2021-01-22] MEDS ORDERED: KETOROLAC 30 MG/ML VIAL IM STA (01:52)
--- NOTE | 2021-01-22 01:53 | ED Physician Documentation ---
PD HPI HEENT - Stated complaint Stated Complaint: R EAR SWOLLEN/PX - Chief complaint Chief Complaint: Heent - History obtained from History obtained from: Patient - Additional information Additional information: 35yF p/w R ear infection, s/p 1 day of antibiotic ear drops prescribed by clinic provider. patient states the swelling and pain is getting worse and she feels like the ear drops can't get in. denies mastoid pain, headache, fevers. decreased hearing in R ear. L ear also was infected and seems to be improving. denies drainage. Review of Systems Ears: reports: Ear pain. 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) HEENT: Chronic vision loss Psych: None Musculoskeletal: None Derm: None - Past Surgical History Past Surgical History: No /ANIMAL SURGEON: Oophrectomy - Present Medications Home Medications: Ambulatory Orders Medication Instructions Recorded Confirmed Acetaminophen [Tylenol] 650 mg PO Q4HR PRN #50 tablet 09/19/19 07/31/20 Ibuprofen [Motrin] 600 mg PO Q6H PRN #30 tab 10/15/20 Ciproflox/Dexameth Otic Drops 4 drops OT BID #7.5 ml 01/22/21 [Ciprodex Otic Drops] - Allergies Allergies/Adverse Reactions: Allergies Allergy/AdvReac Type Severity Reaction Status Date / Time codeine AdvReac Mild Nausea, Verified 10/15/20 17:25 hives - Social History Does the pt smoke?: No Smoking Status: Never smoker Does the pt drink ETOH?: No Does the pt have substance abuse?: No - Immunizations Immunizations are current?: Yes - POLST Patient has POLST: No PD ED PE NORMAL - Vitals Vital signs reviewed: Yes - General General: Alert and oriented X 3, No acute distress, Well developed/nourished - HEENT HEENT: Atraumatic, PERRL, EOMI, Other (BL otitis externa. R ear canal with severe swelling. mastoid process nontender. no trismus. ) - Derm Derm: Normal color, Warm and dry - Extremities Extremities: No deformity - Neuro Neuro: Alert and oriented X 3 Results - Vitals Vitals: Vital Signs - 24 hr 01/22/21 01/22/21 00:55 01:04 Temperature 36.3 C L 36.3 C L Heart Rate 100 100 Respiratory 18 18 Rate Blood Pressure 149/97 H 149/97 H O2 Saturation 98 98 Oxygen O2 Source Room air Procedures - General procedure General procedure: Ear wick inserted successfully into R ear without issue. one attempt only. EBL 0. patient tolerated well. PD MEDICAL DECISION MAKING - ED course ED course: 35yF p/w worsening R ear otitis externa. I changed her antibiotic drops to fluoroquinolone to cover pseudomonas and inserted an ear wick which will be removed in 3 days. return precautions discussed. Departure - Departure Disposition: Home, Self Care Clinical Impression: Otitis externa Condition: Good Instructions: ED Otitis Externa Prescriptions: Ciproflox/Dexameth Otic Drops [Ciprodex Otic Drops] 4 drops OT BID #7.5 ml Comments: You were seen in the emergency department for R ear infection and we placed an ear wick to help the ear drops get in the inflamed ear. I am also switching you to stronger drops. Please follow up in three days to have ear wick removed. return earlier if you have new or worsening symptoms, develop fever or severe scalp pain or have other concerns. Discharge Date/Time: 01/22/21 02:02
== END 2021-01-22 02:02 | disposition home or self-care (01) ==
LOC: ED 00:45
DX: H60.93 Unspecified otitis externa, bilateral (principal); I10 Essential (primary) hypertension
CPT/HCPCS: 96372; 99283

== ENCOUNTER 2021-04-09 16:24 | Emergency (ER) | payer MEDICAID ==
[2021-04-09 16:31] VITALS: BP 132/93
--- NOTE | 2021-04-09 16:40 | ED Physician Documentation ---
PD HPI HEENT - Stated complaint Stated Complaint: EAR PX - Chief complaint Chief Complaint: Heent - History obtained from History obtained from: Patient - Additional information Additional information: 35-year-old woman is has had trouble with her ears that she started in the last few months with a couple of ear infections, sounds like some more otitis externa and some otitis media. She has not had routine screening labs to check for diabetes in a long time. She does smoke. We discussed the association of tobacco abuse with ear infections and other respiratory infections. 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) HEENT: Chronic vision loss Psych: None Musculoskeletal: None Derm: None - Past Surgical History Past Surgical History: No /COOKIE BREAKER: Oophrectomy - Present Medications Home Medications: Ambulatory Orders Medication Instructions Recorded Confirmed Acetaminophen [Tylenol] 650 mg PO Q4HR PRN #50 tablet 09/19/19 07/31/20 Ibuprofen [Motrin] 600 mg PO Q6H PRN #30 tab 10/15/20 Ciproflox/Dexameth Otic Drops 4 drops OT BID #7.5 ml 01/22/21 [Ciprodex Otic Drops] Amox/Clav 875/125 [Augmentin] 1 each PO Q12H #20 tablet 04/09/21 Ofloxacin [Ofloxacin Otic drops] 5 drops OT BID #10 ml 04/09/21 - Allergies Allergies/Adverse Reactions: Allergies Allergy/AdvReac Type Severity Reaction Status Date / Time codeine AdvReac Mild Nausea, Verified 04/09/21 16:31 hives - Social History Does the pt smoke?: No Smoking Status: Never smoker Does the pt drink ETOH?: No Does the pt have substance abuse?: No - Immunizations Immunizations are current?: Yes - POLST Patient has POLST: No PD ED PE NORMAL - Vitals Vital signs reviewed: Yes - General General: Alert and oriented X 3, No acute distress - HEENT HEENT: Ears normal (Right otitis media, potentially a tiny perforation that is difficult to see.) - Neck Neck: Supple, no meningeal sign, No bony TTP - Neuro Neuro: Alert and oriented X 3, Normal speech Results - Vitals Vitals: Vital Signs - 24 hr 04/09/21 16:27 Temperature 36.3 C L Heart Rate 90 Respiratory 18 Rate Blood Pressure 132/93 H O2 Saturation 99 Oxygen O2 Source Room air Departure - Departure Disposition: 01 Home, Self Care Clinical Impression: Otitis media Qualifiers: Otitis media type: suppurative Chronicity: acute Laterality: right Recurrence: recurrent Spontaneous tympanic membrane rupture: with spontaneous rupture Qualified Code(s): H66.014 - Acute suppurative otitis media with spontaneous rupture of ear drum, recurrent, right ear Condition: Good Record reviewed to determine appropriate education?: Yes Instructions: ED Otitis Media Acute Adult Prescriptions: Amox/Clav 875/125 [Augmentin] 1 each PO Q12H #20 tablet Ofloxacin [Ofloxacin Otic drops] 5 drops OT BID #10 ml Comments: As discussed, you do have an ear infection on the right and some drainage in the canal which I am treating with both topical as well as oral antibiotics. It is reasonable to follow-up with a ENT specialist given your recent issues with your ears, the closest is in [place], phone numbers [phone]. I sent a prescription electronically [facility] in [place].
== END 2021-04-09 17:25 | disposition home or self-care (01) ==
LOC: ED 16:24
DX: H66.014 Acute suppurative otitis media with spontaneous rupture of ear drum, recurrent, right ear (principal); F17.200 Nicotine dependence, unspecified, uncomplicated; I10 Essential (primary) hypertension
CPT/HCPCS: 99282

== ENCOUNTER 2021-04-20 08:31 | Inpatient (IN) | payer MEDICAID ==
[2021-04-20] MEDS ORDERED: HYDROmorphone 0.5 MG/0.5 ML SYRINGE IVP STA (09:19)
[2021-04-20] MEDS ORDERED: KETOROLAC 30 MG/ML VIAL IVP STA (09:19)
[2021-04-20 09:25] LABS: BILIRUBIN,URINE NEGATIVE (NEGATIVE); GLUCOSE, URINE (UA) NEGATIVE (NEGATIVE); KETONES,URINE (UA) NEGATIVE (NEGATIVE); LEUKOCYTE ESTERASE, URINE NEGATIVE (NEGATIVE); NITRITE,URINE NEGATIVE (NEGATIVE); OCCULT BLOOD,URINE SMALL (NEGATIVE); PROTEIN,URINE 30 mg/dL (NEGATIVE); UROBILINOGEN,URINE 0.2 (NORMAL) E.U./dL (NORMAL)
[2021-04-20 09:29] LABS: CLARITY,URINE CLEAR (CLEAR); HCG UR QUAL NEGATIVE
--- NOTE | 2021-04-20 09:29 | ED Physician Documentation ---
History of Present Illness - Stated complaint Stated Complaint: R SIDE PAIN - Chief complaint Chief Complaint: Abd Pain - History obtained from History obtained from: Patient - Additonal information Additional information: Patient comes emergency department with chief complaint of right upper quadrant pain that started yesterday evening. Patient states it actually started before she ate dinner but after she had had a couple of energy drinks. The patient does not have any personal or family history of gallbladder disease. She has not had any symptoms like this prior. She states that she has felt some of the pain in her right back and that it sometimes feels as though it is radiating down to her lower abdomen, so she was not sure if she might have a kidney stone. She has never had 1 before, nor have any of her family members. Patient states that in the last year, she did have a bilateral salpingectomy and right oophorectomy with partial left oophorectomy, secondary to ovarian cyst and torsion. She still has her uterus. Patient also still has her appendix and gallbladder. Patient denies any other medical history, and states she is otherwise healthy. No other complaints at this time. She states that some positional changes affect the pain either for better or for worse. Laying flat on her back seems to make the pain worse. Review of Systems Ten Systems: 10 systems reviewed and negative Constitutional: reports: Reviewed and negative Eyes: reports: Reviewed and negative Ears: reports: Reviewed and negative Nose: reports: Reviewed and negative Throat: reports: Reviewed and negative Cardiac: reports: Reviewed and negative Respiratory: reports: Reviewed and negative GI: reports: Abdominal Pain : reports: Reviewed and negative Skin: reports: Reviewed and negative Musculoskeletal: reports: Reviewed and negative Neurologic: reports: Reviewed and negative Psychiatric: reports: Reviewed and negative Endocrine: reports: Reviewed and negative Immunocompromised: reports: Reviewed and negative PD PAST MEDICAL HISTORY - Past Medical History Past Medical History: Yes Cardiovascular: Hypertension, Other Respiratory: None Neuro: None Endocrine/Autoimmune: Other GI: GERD 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: Ovarian cysts, Miscarriage(s) : None HEENT: Chronic vision loss Psych: None Musculoskeletal: None Derm: None - Past Surgical History Past Surgical History: No /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 PILOT: Oophrectomy - Present Medications Home Medications: Ambulatory Orders Medication Instructions Recorded Confirmed Acetaminophen [Tylenol] 650 mg PO Q4HR PRN #50 tablet 09/19/19 04/20/21 Ibuprofen [Motrin] 600 mg PO Q6H PRN #30 tab 07/13/21 01/16/22 Ofloxacin [Ofloxacin Otic drops] 5 drops OT BID #10 ml 04/09/21 04/20/21 - Allergies Allergies/Adverse Reactions: Allergies Allergy/AdvReac Type Severity Reaction Status Date / Time codeine AdvReac Mild Nausea, Verified 04/20/21 08:40 hives - Social History Does the pt smoke?: Yes Smoking Status: Current every day smoker Does the pt drink ETOH?: No Does the pt have substance abuse?: No - Immunizations Immunizations are current?: Yes - POLST Patient has POLST: No PD ED PE NORMAL - Vitals Vital signs reviewed: Yes - General General: Alert and oriented X 3, No acute distress, Well developed/nourished - HEENT HEENT: Atraumatic, PERRL, EOMI, Moist mucous membranes - Cardiac Cardiac: RRR, No murmur - Respiratory Respiratory: No respiratory distress, Clear bilaterally - Abdomen Abdomen: Soft, Non distended, Other (Right upper quadrant tenderness, moderate, no rebound or guarding. No other abdominal tenderness.) - Back Back: Other (Mild right CVA tenderness.) - Derm Derm: Normal color, Warm and dry, No rash - Extremities Extremities: No deformity, No edema - Neuro Neuro: Alert and oriented X 3, oracle manager 2-12 intact, Normal speech - Psych Psych: Normal mood, Normal affect Results - Vitals Vitals: Vital Signs - 24 hr 04/20/21 04/20/21 04/20/21 08:40 09:20 11:32 Temperature 36.1 C L 36 C L Heart Rate 86 72 70 Heart Rate [ Brachial] Respiratory 18 18 18 Rate Blood Pressure 149/90 H 146/82 H 137/81 H Blood Pressure [Left Brachial artery] O2 Saturation 99 95 96 04/20/21 04/20/21 04/20/21 13:00 15:00 16:34 Temperature 36.4 C L Heart Rate 60 75 Heart Rate [ 76 Brachial] Respiratory 18 16 18 Rate Blood Pressure 141/88 H 130/76 Blood Pressure 126/82 H [Left Brachial artery] O2 Saturation 93 95 97 04/20/21 04/20/21 04/21/21 22:26 23:50 03:52 Temperature 36.6 C 36.5 C 36.8 C Heart Rate Heart Rate [ 73 74 77 Brachial] Respiratory 19 16 15 Rate Blood Pressure Blood Pressure 123/74 114/68 132/69 H [Left Brachial artery] O2 Saturation 96 96 95 Oxygen O2 Source Room air - Labs Labs: Laboratory Tests 04/20/21 04/20/21 04/20/21 09:06 09:28 09:28 WBC 15.6 H RBC 4.81 Hgb 14.3 Hct 43.3 MCV 90.0 MCH 29.7 MCHC 33.0 RDW 13.2 Plt Count 410 MPV 9.6 Neut # (Auto) 10.4 H Lymph # (Auto) 3.8 H [place] # (Auto) 0.9 Eos # (Auto) 0.3 Baso # (Auto) 0.1 Absolute Nucleated RBC 0.00 Nucleated RBC % 0.0 Sodium 135 Potassium 3.6 Chloride 104 Carbon Dioxide 21 Anion Gap 10.0 BUN 11 Creatinine 0.5 Estimated GFR (MDRD) 140 Glucose 106 H Calcium 8.9 Total Bilirubin 0.3 AST 18 ALT 28 Alkaline Phosphatase 77 Total Protein 7.3 Albumin 3.7 Globulin 3.6 Albumin/Globulin Ratio 1.0 Lipase 25 Urine Color YELLOW Urine Clarity CLEAR Urine pH 6.0 Ur Specific [place] >=1.030 H Urine Protein 30 H Urine Glucose (UA) NEGATIVE Urine Ketones NEGATIVE Urine Occult Blood SMALL H Urine Nitrite NEGATIVE Urine Bilirubin NEGATIVE Urine Urobilinogen 0.2 (NORMAL) Ur Leukocyte Esterase NEGATIVE Urine RBC 0-5 Urine WBC 0-3 Ur Squamous Epith Cells RARE Squamous Urine Bacteria Rare Urine Mucus Few Strands Ur Microscopic Review INDICATED Urine Culture Comments NOT INDICATED Urine HCG, Qual NEGATIVE Nasal Adenovirus (PCR) Nasal B. parapertussis DNA (PCR) Nasal Coronavir 229E PCR Nasal Coronavir HKU1 PCR Nasal Coronavir NL63 PCR Nasal Coronavir OC43 PCR Nasal Enterovir/Rhinovir PCR Nasal Influenza B PCR Nasal Influenza A PCR Nasal Parainfluen 1 PCR Nasal Parainfluen 2 PCR Nasal Parainfluen 3 PCR Nasal Parainfluen 4 PCR Nasal RSV (PCR) Nasal B.pertussis DNA PCR Nasal C.pneumoniae (PCR) Juan J Human Metapneumo PCR Nasal M.pneumoniae (PCR) Nasal SARS-CoV-2 (PCR) 04/20/21 12:30 WBC RBC Hgb Hct MCV MCH MCHC RDW Plt Count MPV Neut # (Auto) Lymph # (Auto) [place] # (Auto) Eos # (Auto) Baso # (Auto) Absolute Nucleated RBC Nucleated RBC % Sodium Potassium Chloride Carbon Dioxide Anion Gap BUN Creatinine Estimated GFR (MDRD) Glucose Calcium Total Bilirubin AST ALT Alkaline Phosphatase Total Protein Albumin Globulin Albumin/Globulin Ratio Lipase Urine Color Urine Clarity Urine pH Ur Specific [place] Urine Protein Urine Glucose (UA) Urine Ketones Urine Occult Blood Urine Nitrite Urine Bilirubin Urine Urobilinogen Ur Leukocyte Esterase Urine RBC Urine WBC Ur Squamous Epith Cells Urine Bacteria Urine Mucus Ur Microscopic Review Urine Culture Comments Urine HCG, Qual Nasal Adenovirus (PCR) NOT DETECTED Nasal B. parapertussis DNA (PCR) NOT DETECTED Nasal Coronavir 229E PCR NOT DETECTED Nasal Coronavir HKU1 PCR NOT DETECTED Nasal Coronavir NL63 PCR NOT DETECTED Nasal Coronavir OC43 PCR NOT DETECTED Nasal Enterovir/Rhinovir PCR NOT DETECTED Nasal Influenza B PCR NOT DETECTED Nasal Influenza A PCR NOT DETECTED Nasal Parainfluen 1 PCR NOT DETECTED Nasal Parainfluen 2 PCR NOT DETECTED Nasal Parainfluen 3 PCR NOT DETECTED Nasal Parainfluen 4 PCR NOT DETECTED Nasal RSV (PCR) NOT DETECTED Nasal B.pertussis DNA PCR NOT DETECTED Nasal C.pneumoniae (PCR) NOT DETECTED Juan J Human Metapneumo PCR NOT DETECTED Nasal M.pneumoniae (PCR) NOT DETECTED Nasal SARS-CoV-2 (PCR) NOT DETECTED - Rads (name of study) CT abd/pelvis Radiology: Final report received, EMP read indepedently, See rad report (cholecystitis) PD MEDICAL DECISION MAKING - ED course Complexity details: reviewed results, re-evaluated patient, considered differential, d/w patient ED course: The patient was treated symptomatically with Toradol and Dilaudid, and worked up with laboratory studies and urinalysis, Then CT scan of the abdomen pelvis. Patient was found to have a leukocytosis of 15.6, but otherwise, labs were unremarkable. CT scan showed evidence of cholecystitis. I spoke with Dr. Calhoun, was on-call for surgery, and she did come and evaluate the patient. Patient was Given Zosyn in the emergency department and was admitted to the hospital with pl alex for surgical management. Departure - Departure Clinical Impression: Acute cholecystitis Condition: Serious
[2021-04-20 09:35] LABS: BASOPHILS # (AUTO) 0.1 10^3/uL (0.0-0.1); BASOPHILS % (AUTO) 0.8 %; EOSINOPHILS # (AUTO) 0.3 10^3/uL (0.0-0.7); EOSINOPHILS % (AUTO) 1.9 %; HCT - HEMATOCRIT 43.3 % (37.0-47.0); HGB - HEMOGLOBIN 14.3 g/dL (12.0-16.0); LYMPHOCYTES # (AUTO) 3.8 10^3/uL (1.5-3.5); LYMPHOCYTES % (AUTO) 24.6 %; MEAN CORPUSCULAR HEMOGLOBIN 29.7 pg (27.0-31.0); MEAN PLATELET VOLUME 9.6 fL (7.9-10.8); MONOCYTES # (AUTO) 0.9 10^3/uL (0.0-1.0); MONOCYTES % (AUTO) 5.5 %; NEUTROPHILS # (AUTO) 10.4 10^3/uL (1.5-6.6); NEUTROPHILS % (AUTO) 66.9 %; PLT - PLATELET COUNT 410 10^3/uL (130-450); RED BLOOD COUNT 4.81 10^6/uL (4.20-5.40); RED CELL DISTRIBUTION WIDTH 13.2 % (12.0-15.0); WHITE BLOOD COUNT 15.6 x10^3/uL (4.8-10.8)
[2021-04-20 09:50] LABS: BACTERIA,URINE Rare /HPF (None Seen); MUCUS,URINE Few Strands; RBC,URINE 0-5 /HPF (0-5); SQUAMOUS EPITHELIAL CELL,UR RARE Squamous (<= Few); WBC,URINE 0-3 /HPF (0-5)
[2021-04-20 09:55] LABS: ALBUMIN 3.7 g/dL (3.2-5.5); BILIRUBIN,TOTAL 0.3 mg/dL (0.2-1.0); CALCIUM 8.9 mg/dL (8.5-10.3); CREATININE 0.5 mg/dL (0.4-1.0); POTASSIUM 3.6 mmol/L (3.5-5.0); TOTAL PROTEIN 7.3 g/dL (6.7-8.2)
[2021-04-20] MEDS ORDERED: iohexoL-300 100 ML VIAL ONE (10:24)
[2021-04-20] MEDS ORDERED: iohexoL-300 100 ML VIAL IVP ONE (10:45)
--- NOTE | 2021-04-20 10:56 | CT Report ---
PROCEDURE: Abdomen/Pelvis W INDICATIONS: ruq pain CONTRAST: IV CONTRAST: Isovue 300 ml: 100 PO CONTRAST: *NO PO CONTRAST TECHNIQUE: After the administration of IV contrast, 5 mm thick sections acquired from the diaphragms to the symp hysis. 5 mm thick coronal and sagittal reformats were acquired. For radiation dose reduction, the f ollowing was used: automated exposure control, adjustment of mA and/or kV according to patient size. COMPARISON: 12/08/2019, 12/15/2019 FINDINGS: Image quality: Excellent. ABDOMEN: Lung bases: Lung bases are clear. Heart size is normal. Solid organs: Diffuse fatty liver infiltration can be seen. No focal liver lesions are seen. The sp shayne demonstrates normal size and demonstrates no suspicious lesions. An accessory splenule is incid entally noted along the inferior aspect of the primary spleen. Gallbladder demonstrates apparent g allstones within its lumen. A small amount of pericholecystic fluid can be seen. Biliary system is n on dilated. Pancreas enhances normally. No adrenal nodules. Kidneys demonstrate normal size and en hancement, without hydronephrosis. Peritoneum and bowel: Bowel loops demonstrate normal wall thickness and caliber. No free fluid or a ir. A normal appendix is incidentally noted. Nodes and vessels: No retroperitoneal or mesenteric adenopathy by size criteria. Aorta and inferior vena cava are normal in size. Miscellaneous: No ventral hernias. PELVIS: Genitourinary: Bladder wall thickness is normal. The uterus demonstrates an unremarkable appearance for age. No adnexal masses are seen. The previously seen cystic masses have resolved. Miscellaneous: No inguinal hernias or adenopathy. Bones: No suspicious bony lesions. No vertebral body compression fractures. IMPRESSION: Gallstones and pericholecystic cholecystic fluid can be seen, which are suspicious for c holecystitis. Please consider a follow-up right upper quadrant ultrasound for further evaluation/conf irmation Resolution of the previously seen cystic pelvic masses. Incidental note is made of: Fatty liver infiltration Accessory splenule Reviewed by: Souleymane Mondragon MD on 04/20/2021 9:55 AM [facility] Approved by: Souleymane Mondragon MD on 04/20/2021 9:55 AM [facility] Station ID: [id number]
[2021-04-20] MEDS ORDERED: HYDROmorphone 1 MG/ML CARPUJECT IVP STA (12:01)
[2021-04-20] MEDS ORDERED: ONDANSETRON 4 MG/2 ML VIAL IVP STA (12:25)
[2021-04-20] MEDS ORDERED: PIPERACILLIN/TAZOBACTAM 3.375 GM in SODIUM CHLORIDE 0.9% MINIBAG 100 ML IV STA (12:50)
[2021-04-20 13:31] LABS: B. PARAPERTUSSIS- RESP PCR PAN NOT DETECTED; B. PERTUSSIS- RESP PCR PANEL NOT DETECTED; C. PNEUMONIAE- RESP PCR PANEL NOT DETECTED; CORONAVIRUS 229E-RESP PCR NOT DETECTED; CORONAVIRUS HKU1-RESP PCR NOT DETECTED; CORONAVIRUS NL63-RESP PCR NOT DETECTED; CORONAVIRUS OC43-RESP PCR NOT DETECTED; HUMAN METAPNEUMOVIRUS NOT DETECTED; INFLUENZA A- RESP PCR PANEL NOT DETECTED; INFLUENZA B - RESP PCR PANEL NOT DETECTED; M. PNEUMONIAE- RESP PCR PANEL NOT DETECTED; PARAINFLUENZA VIRUS 1 NOT DETECTED; PARAINFLUENZA VIRUS 2 NOT DETECTED; PARAINFLUENZA VIRUS 3 NOT DETECTED; PARAINFLUENZA VIRUS 4 NOT DETECTED; RHINOVIRUS/ENTEROVIRUS NOT DETECTED; RSV- RESP PCR PANEL NOT DETECTED; SARS-CoV-2 -RESP PCR PANEL NOT DETECTED
[2021-04-20] MEDS ORDERED: ONDANSETRON 4 MG/2 ML VIAL IVP PRN (14:15)
[2021-04-20] MEDS ORDERED: LORazepam 2 MG/ML VIAL IVP PRN (14:15)
--- NOTE | 2021-04-20 15:58 | HISTORY & PHYSICAL EXAMINATION ---
HPI - Admitted From Admitted from: ED - History Obtained From History obtained from: Patient Exam limitations: No limitations - History of Present Illness Pain/Problem Location Description: Abdominal pain Severity at the worst: reports: Severe Pain Quality: reports: Aching Context-Pain started w/: reports: Rest Timing: reports: Gradual onset Duration: reports: Hours: (12) Improved with: reports: Nothing Worsened by: reports: Exertion, Inspiration, Movement, Palpation HPI Comment/Other: 35 year old lady who presented to the ED with approximately 12 hours of right upper quadrant pain associated with transient nausea. She reports it seemed to get worse over night and she was not able to get comfortable. She decided it was finally time to be evaluated. She has a history of laparoscopy with salpingectomy in December of 2019 after having a child in September of the same year. She reports she has never had similar symptoms. She tells me she has not had any fever she is aware of and didn't have nausea until she got pain medication in the ED. She is feeling better but is a little groggy now PMH/PSH - Past Medical History Cardiovascular: positive: Hypertension, Other Respiratory: positive: None Neuro: positive: None Endocrine/Autoimmune: positive: Other GI: positive: GERD EMERGENCY SPECIALIST: positive: Ovarian cysts, Miscarriage(s) : positive: None HEENT: positive: Chronic vision loss Psych: positive: None Musculoskeletal: positive: None Derm: positive: None MRSA Hx?: No - Past Surgical History /EMERGENCY SPECIALIST: positive: Oophrectomy, LEEP (Cervical surgery) Social & Family Hx - Social History Does the pt smoke?: Yes Smoking Status: Current every day smoker Does the pt drink ETOH?: No Does the pt have substance abuse?: No - POLST Patient has POLST: No Meds/Allgy - Home Medications Home Medications: Ambulatory Orders Medication Instructions Recorded Confirmed Acetaminophen [Tylenol] 650 mg PO Q4HR PRN #50 tablet 09/19/19 04/20/21 Ibuprofen [Motrin] 600 mg PO Q6H PRN #30 tab 10/15/20 04/20/21 Ofloxacin [Ofloxacin Otic drops] 5 drops OT BID #10 ml 04/09/21 04/20/21 - Allergies Allergies/Adverse Reactions: Allergies Allergy/AdvReac Type Severity Reaction Status Date / Time codeine AdvReac Mild Nausea, Verified 04/20/21 08:40 hives Review of Systems - Constitutional Constitutional: reports: Fatigue. denies: Fever, Chills - Gastrointestinal Gastrointestinal: reports: Abdominal pain (Right upper quadrant and back) Exam - Vital Signs Reviewed Vital Signs: Yes Vital Signs: Vital Signs x48h Temp Pulse Resp BP Pulse Ox 04/20/21 15:00 75 16 130/76 95 04/20/21 13:00 60 18 141/88 H 93 04/20/21 11:32 36 C L 70 18 137/81 H 96 04/20/21 09:20 72 18 146/82 H 95 04/20/21 08:40 36.1 C L 86 18 149/90 H 99 - Physical Exam General Appearance: positive: No acute distress, Alert Eyes Bilateral: positive: Normal inspection, PERRL, EOMI, No scleral icterus ENT: positive: ENT inspection nml, Pharynx nml Neck: positive: Nml inspection Respiratory: positive: Chest non-tender, No respiratory distress Cardiovascular: positive: Regular rate & rhythm Abdomen: positive: Nml bowel sounds, Tenderness, Guarding. negative: Rebound Skin: positive: Color nml Neurologic/Psychiatric: positive: Oriented x3 Results - Lab Results Fish Bones: 04/20/21 09:28 04/20/21 09:28 Other Lab Results: Lab Results x24hrs 04/20/21 04/20/21 04/20/21 Range/Units 12:30 09:28 09:28 WBC 15.6 H (4.8-10.8) x10^3/uL RBC 4.81 (4.20-5.40) 10^6/uL Hgb 14.3 (12.0-16.0) g/dL Hct 43.3 (37.0-47.0) % MCV 90.0 (81.0-99.0) fL MCH 29.7 (27.0-31.0) pg MCHC 33.0 (32.0-36.0) g/dL RDW 13.2 (12.0-15.0) % Plt Count 410 (130-450) 10^3/uL MPV 9.6 (7.9-10.8) fL Neut # (Auto) 10.4 H (1.5-6.6) 10^3/uL Lymph # (Auto) 3.8 H (1.5-3.5) 10^3/uL [place] # (Auto) 0.9 (0.0-1.0) 10^3/uL Eos # (Auto) 0.3 (0.0-0.7) 10^3/uL Baso # (Auto) 0.1 (0.0-0.1) 10^3/uL Absolute Nucleated RBC 0.00 x10^3/uL Nucleated RBC % 0.0 /100WBC Sodium 135 (135-145) mmol/L Potassium 3.6 (3.5-5.0) mmol/L Chloride 104 (101-111) mmol/L Carbon Dioxide 21 (21-32) mmol/L Anion Gap 10.0 (6-13) BUN 11 (6-20) mg/dL Creatinine 0.5 (0.4-1.0) mg/dL Estimated GFR (MDRD) 140 (>89) Glucose 106 H (70-100) mg/dL Calcium 8.9 (8.5-10.3) mg/dL Total Bilirubin 0.3 (0.2-1.0) mg/dL AST 18 (10-42) IU/L ALT 28 (10-60) IU/L Alkaline Phosphatase 77 (42-121) IU/L Total Protein 7.3 (6.7-8.2) g/dL Albumin 3.7 (3.2-5.5) g/dL Globulin 3.6 (2.1-4.2) g/dL Albumin/Globulin Ratio 1.0 (1.0-2.2) Lipase 25 (22-51) U/L Urine Color Urine Clarity (CLEAR) Urine pH (5.0-7.5) PH Ur Specific [place] (1.002-1.030) Urine Protein (NEGATIVE) mg/dL Urine Glucose (UA) (NEGATIVE) mg/dL Urine Ketones (NEGATIVE) mg/dL Urine Occult Blood (NEGATIVE) Urine Nitrite (NEGATIVE) Urine Bilirubin (NEGATIVE) Urine Urobilinogen (NORMAL) E.U./dL Ur Leukocyte Esterase (NEGATIVE) Urine RBC (0-5) /HPF Urine WBC (0-5) /HPF Ur Squamous Epith Cells (<= Few) Urine Bacteria (None Seen) /HPF Urine Mucus Ur Microscopic Review Urine Culture Comments Urine HCG, Qual Nasal Adenovirus (PCR) NOT DETECTED Nasal B. parapertussis DNA (PCR) NOT DETECTED Nasal Coronavir 229E PCR NOT DETECTED Nasal Coronavir HKU1 PCR NOT DETECTED Nasal Coronavir NL63 PCR NOT DETECTED Nasal Coronavir OC43 PCR NOT DETECTED Nasal Enterovir/Rhinovir PCR NOT DETECTED Nasal Influenza B PCR NOT DETECTED Nasal Influenza A PCR NOT DETECTED Nasal Parainfluen 1 PCR NOT DETECTED Nasal Parainfluen 2 PCR NOT DETECTED Nasal Parainfluen 3 PCR NOT DETECTED Nasal Parainfluen 4 PCR NOT DETECTED Nasal RSV (PCR) NOT DETECTED Nasal B.pertussis DNA PCR NOT DETECTED Nasal C.pneumoniae (PCR) NOT DETECTED Juan J Human Metapneumo PCR NOT DETECTED Nasal M.pneumoniae (PCR) NOT DETECTED Nasal SARS-CoV-2 (PCR) NOT DETECTED 04/20/21 Range/Units 09:06 WBC (4.8-10.8) x10^3/uL RBC (4.20-5.40) 10^6/uL Hgb (12.0-16.0) g/dL Hct (37.0-47.0) % MCV (81.0-99.0) fL MCH (27.0-31.0) pg MCHC (32.0-36.0) g/dL RDW (12.0-15.0) % Plt Count (130-450) 10^3/uL MPV (7.9-10.8) fL Neut # (Auto) (1.5-6.6) 10^3/uL Lymph # (Auto) (1.5-3.5) 10^3/uL [place] # (Auto) (0.0-1.0) 10^3/uL Eos # (Auto) (0.0-0.7) 10^3/uL Baso # (Auto) (0.0-0.1) 10^3/uL Absolute Nucleated RBC x10^3/uL Nucleated RBC % /100WBC Sodium (135-145) mmol/L Potassium (3.5-5.0) mmol/L Chloride (101-111) mmol/L Carbon Dioxide (21-32) mmol/L Anion Gap (6-13) BUN (6-20) mg/dL Creatinine (0.4-1.0) mg/dL Estimated GFR (MDRD) (>89) Glucose (70-100) mg/dL Calcium (8.5-10.3) mg/dL Total Bilirubin (0.2-1.0) mg/dL AST (10-42) IU/L ALT (10-60) IU/L Alkaline Phosphatase (42-121) IU/L Total Protein (6.7-8.2) g/dL Albumin (3.2-5.5) g/dL Globulin (2.1-4.2) g/dL Albumin/Globulin Ratio (1.0-2.2) Lipase (22-51) U/L Urine Color YELLOW Urine Clarity CLEAR (CLEAR) Urine pH 6.0 (5.0-7.5) PH Ur Specific [place] >=1.030 H (1.002-1.030) Urine Protein 30 H (NEGATIVE) mg/dL Urine Glucose (UA) NEGATIVE (NEGATIVE) mg/dL Urine Ketones NEGATIVE (NEGATIVE) mg/dL Urine Occult Blood SMALL H (NEGATIVE) Urine Nitrite NEGATIVE (NEGATIVE) Urine Bilirubin NEGATIVE (NEGATIVE) Urine Urobilinogen 0.2 (NORMAL) (NORMAL) E.U./dL Ur Leukocyte Esterase NEGATIVE (NEGATIVE) Urine RBC 0-5 (0-5) /HPF Urine WBC 0-3 (0-5) /HPF Ur Squamous Epith Cells RARE Squamous (<= Few) Urine Bacteria Rare (None Seen) /HPF Urine Mucus Few Strands Ur Microscopic Review INDICATED Urine Culture Comments NOT INDICATED Urine HCG, Qual NEGATIVE Nasal Adenovirus (PCR) Nasal B. parapertussis DNA (PCR) Nasal Coronavir 229E PCR Nasal Coronavir HKU1 PCR Nasal Coronavir NL63 PCR Nasal Coronavir OC43 PCR Nasal Enterovir/Rhinovir PCR Nasal Influenza B PCR Nasal Influenza A PCR Nasal Parainfluen 1 PCR Nasal Parainfluen 2 PCR Nasal Parainfluen 3 PCR Nasal Parainfluen 4 PCR Nasal RSV (PCR) Nasal B.pertussis DNA PCR Nasal C.pneumoniae (PCR) Juan J Human Metapneumo PCR Nasal M.pneumoniae (PCR) Nasal SARS-CoV-2 (PCR) - Diagnostic Imaging Results Diagnostic Imaging Results Comments: Gallstones with pericholecystic fluid. Intrahepatic and extrahepatic biliary ducts are normal in caliber Impression/Plan - Problem List Problem List: Acute cholecystitis and cholelithiasis in the setting of a 45 year old lady with no known chronic medical issues excepting cervical dysplasia. I have recommended admission for IV antibiotic therapy with plans for laparoscopic cholecystectomy in the AM. We have discussed the risks and benefits of the procedure and Lillie has expressed a desire to have the procedure.
[2021-04-20] MEDS: SODIUM CHLORIDE 0.9% 1,000 ML IV SCH (16:57)
[2021-04-20] MEDS: SODIUM CHLORIDE FLUSH 0.9% 10 ML SYRINGE IVP SCH ×2 (17:02→23:53)
[2021-04-20] MEDS: PIPERACILLIN/TAZOBACTAM 3.375 GM in SODIUM CHLORIDE 0.9% MINIBAG 100 ML IV SCH ×2 (17:08→23:51)
[2021-04-21] MEDS: SODIUM CHLORIDE 0.9% 1,000 ML IV SCH ×3 (03:52→23:13)
[2021-04-21] MEDS: PIPERACILLIN/TAZOBACTAM 3.375 GM in SODIUM CHLORIDE 0.9% MINIBAG 100 ML IV SCH ×3 (06:13→17:17)
[2021-04-21] MEDS: PANTOPRAZOLE 40 MG VIAL IVP SCH (06:14)
[2021-04-21] MEDS ORDERED: LIDOCAINE-MPF 2% 5 ML VIAL ONE (08:50)
[2021-04-21] MEDS ORDERED: PROPOFOL 200 MG/20 ML VIAL IVP ONE (08:50)
[2021-04-21] MEDS ORDERED: DEXAMETHASONE 4 MG/ML VIAL ONE (08:52)
[2021-04-21] MEDS ORDERED: KETOROLAC 30 MG/ML VIAL ONE (08:52)
[2021-04-21] MEDS ORDERED: MIDAZOLAM 2 MG/2 ML VIAL ONE (08:52)
[2021-04-21] MEDS ORDERED: ONDANSETRON 4 MG/2 ML VIAL ONE (08:52)
[2021-04-21] MEDS ORDERED: ROCURONIUM 50 MG/5 ML VIAL ONE ×2 (08:52→10:46)
[2021-04-21] MEDS ORDERED: fentaNYL 100 MCG/2 ML VIAL ONE (08:53)
[2021-04-21] MEDS ORDERED: ePHEDrine 50 MG/ML VIAL IVP PRN (08:56)
[2021-04-21] MEDS ORDERED: fentaNYL 100 MCG/2 ML VIAL IVP PRN (08:56)
[2021-04-21] MEDS ORDERED: HYDROmorphone 0.5 MG/0.5 ML SYRINGE IVP PRN (08:56)
[2021-04-21] MEDS ORDERED: NALOXONE 0.4 MG/ML VIAL IVP PRN (08:56)
[2021-04-21] MEDS ORDERED: ONDANSETRON 4 MG/2 ML VIAL IVP PRN (08:56)
[2021-04-21] MEDS ORDERED: ATROPINE ABBOJECT 1 MG/10 ML SYRINGE IVP PRN (08:56)
[2021-04-21] MEDS ORDERED: METOCLOPRAMIDE 10 MG/2 ML VIAL IVP PRN (08:56)
[2021-04-21] MEDS ORDERED: MORPHINE 2 MG/ML CARPUJECT IVP PRN (08:56)
--- NOTE | 2021-04-21 08:56 | ANESTHESIA ---
Pre-Anesthesia VS, & Labs - Diagnosis acute cholecystitis - Procedure lap colby Vital Signs: Temp Pulse Resp BP Pulse Ox 36.5 C 70 20 151/89 H 97 04/21/21 08:49 04/21/21 08:49 04/21/21 08:49 04/21/21 08:49 04/21/21 08:49 Height: 5 ft 3 in Weight (kg): 118.841 kg Body Mass Index: 46.4 BMI Classification: Morbidly Obese - NPO >8 hours - Is Patient ?: No, Not Applicable - Lab Results Current Lab Results: Laboratory Tests 04/20/21 09:28: Sodium 135, Potassium 3.6, Chloride 104, Carbon Dioxide 21, Anion Gap 10.0, BUN 11, Creatinine 0.5, Estimated GFR (MDRD) 140, Glucose 106 H, Calcium 8.9, Total Bilirubin 0.3, AST 18, ALT 28, Alkaline Phosphatase 77, Total Protein 7.3, Albumin 3.7, Globulin 3.6, Albumin/Globulin Ratio 1.0, Lipase 25 04/20/21 09:28: WBC 15.6 H, RBC 4.81, Hgb 14.3, Hct 43.3, MCV 90.0, MCH 29.7, MCHC 33.0, RDW 13.2, Plt Count 410, MPV 9.6, Neut # (Auto) 10.4 H, Lymph # (Auto) 3.8 H, [place] # (Auto) 0.9, Eos # (Auto) 0.3, Baso # (Auto) 0.1, Absolute Nucleated RBC 0.00, Nucleated RBC % 0.0 Fish Bones: 04/20/21 09:28 04/20/21 09:28 Home Medications and Allergies Active Medications Hydromorphone HCl (Hydromorphone 0.5 Mg/0.5 Ml Syringe) 0.5 mg IVP Q2HR PRN PRN Reason: PAIN Sodium Chloride (Normal Saline 0.9%) 1,000 mls @ 100 mls/hr IV .Q10H MY[facility] Last Admin: 04/21/21 03:52 Dose: 100 mls/hr Piperacillin Sod/Tazobactam (Sod 3.375 gm/ Sodium Chloride) 100 mls @ 200 mls/hr IV Q6HR MYRON Last Infusion: 04/21/21 06:55 Dose: Infused Lorazepam (Lorazepam 2 Mg/Ml Vial) 0.5 mg IVP Q4H PRN PRN Reason: Anxiety Ondansetron HCl (Ondansetron 4 Mg/2 Ml Vial) 4 mg IVP Q6H PRN PRN Reason: Nausea / Vomiting Pantoprazole Sodium (Pantoprazole 40 Mg Vial) 40 mg IVP [facility] Last Admin: 04/21/21 06:14 Dose: 40 mg Sodium Chloride (Sodium Chloride Flush 0.9% 10 Ml Syringe) 10 ml IVP 0100,0900,1700 [facility] Last Admin: 04/20/21 23:53 Dose: 10 ml Sodium Chloride (Sodium Chloride Flush 0.9% 10 Ml Syringe) 10 ml IVP PRN PRN PRN Reason: NEEDED PER PROVIDER ORDERS Allergies/Adverse Reactions: Allergies Allergy/AdvReac Type Severity Reaction Status Date / Time codeine AdvReac Mild Nausea, Verified 04/20/21 08:40 hives Anes History & Medical History - Anesthetic History Anesthesia Complications: reports: No previous complications Family history of Anesthesia Complications: Denies - Medical History Cardiovascular: reports: Hypertension, Other Pulmonary: reports: None Gastrointestinal: reports: GERD Urinary: reports: None Neuro: reports: None Musculoskeletal: reports: None Endocrine/Autoimmune: reports: Other Blood Disorders: reports: None Skin: reports: None Smoking Status: Current every day smoker - Surgical History Gynecologic: reports: Oophrectomy Exam General: Alert, Oriented x3, Cooperative Dental: WNL Mouth Openin Fingerbreadth Neck Mobility: Normal Mallampati classification: II Thyromental Distance: 4-6 cm Respiratory: Lungs clear Cardiovascular: Regular rate Plan Anesthesia Type: General Consent for Procedure(s) Verified and Reviewed: Yes Code Status: Attempt Resuscitation ASA classification: 2-Mild systemic disease Is this case an emergency?: Yes
[2021-04-21] MEDS ORDERED: LACTATED RINGERS 1,000 ML IV SCH (09:00)
[2021-04-21 09:13] LABS: BASOPHILS # (AUTO) 0.1 10^3/uL (0.0-0.1); EOSINOPHILS # (AUTO) 0.2 10^3/uL (0.0-0.7); EOSINOPHILS % (AUTO) 2.1 %; HCT - HEMATOCRIT 41.4 % (37.0-47.0); HGB - HEMOGLOBIN 13.6 g/dL (12.0-16.0); LYMPHOCYTES # (AUTO) 3.2 10^3/uL (1.5-3.5); LYMPHOCYTES % (AUTO) 28.8 %; MEAN CORPUSCULAR HEMOGLOBIN 29.7 pg (27.0-31.0); MEAN CORPUSCULAR HGB CONC 32.9 g/dL (32.0-36.0); MEAN CORPUSCULAR VOLUME 90.4 fL (81.0-99.0); MEAN PLATELET VOLUME 9.9 fL (7.9-10.8); MONOCYTES # (AUTO) 0.5 10^3/uL (0.0-1.0); MONOCYTES % (AUTO) 4.8 %; NEUTROPHILS # (AUTO) 6.9 10^3/uL (1.5-6.6); NEUTROPHILS % (AUTO) 62.8 %; PLT - PLATELET COUNT 356 10^3/uL (130-450); RED BLOOD COUNT 4.58 10^6/uL (4.20-5.40); RED CELL DISTRIBUTION WIDTH 13.4 % (12.0-15.0)
[2021-04-21] MEDS ORDERED: BUPIVACAINE 0.5% PF 10 ML VIAL ONE (09:14)
[2021-04-21] MEDS ORDERED: LIDOCAINE MPF 2%-EPI 1:200000 20 ML VIAL ONE (09:14)
[2021-04-21 09:33] LABS: ALBUMIN 3.5 g/dL (3.2-5.5); ALBUMIN/GLOBULIN RATIO 0.9 (1.0-2.2); BILIRUBIN,TOTAL 0.5 mg/dL (0.2-1.0); CALCIUM 8.4 mg/dL (8.5-10.3); CREATININE 0.6 mg/dL (0.4-1.0); POTASSIUM 3.7 mmol/L (3.5-5.0); TOTAL PROTEIN 7.2 g/dL (6.7-8.2)
[2021-04-21] MEDS ORDERED: ACETAMINOPHEN 1,000 MG/100 ML 100 ML IV ONE (10:20)
[2021-04-21] MEDS ORDERED: IOTHALAMATE MEGLUMINE 50 ML VIAL ONE (10:24)
[2021-04-21] MEDS ORDERED: LIDOCAINE MPF 2%-EPI 1:200000 10 ML VIAL SUBQ ONE (10:31)
[2021-04-21] MEDS ORDERED: BUPIVACAINE 0.5% PF 10 ML VIAL SUBQ ONE (10:33)
[2021-04-21] MEDS ORDERED: IOTHALAMATE MEGLUMINE 50 ML VIAL IVP ONE (10:41)
[2021-04-21] MEDS ORDERED: SUGAMMADEX 200 MG/2 ML VIAL IVP ONE (10:43)
[2021-04-21] MEDS ORDERED: HYDROmorphone 1 MG/ML CARPUJECT ONE (10:53)
[2021-04-21] MEDS: SODIUM CHLORIDE FLUSH 0.9% 10 ML SYRINGE IVP SCH ×2 (11:30→15:56)
[2021-04-21] MEDS ORDERED: LACTATED RINGERS 1,000 ML IV ONE (12:12)
--- NOTE | 2021-04-21 12:24 | OPERATIVE REPORT ---
Operative Report - General Procedure Date: 04/21/21 Planned Procedure: Laparoscopic Cholecystectomy Pre-Op Diagnosis: Acute cholecystitis and cholelithiasis Procedure Performed: Laparoscopic cholecystectomy with intraoperative cholangiogram Post Op Diagnosis: Same - Procedure Note Primary Surgeon: Lj Anesthesia Provider: TEJINDER Garcia Anesthesia Technique: General ET tube, Local Pathology: Gall bladder in formalin to pathology Estimated Blood Loss (mL): 150 Findings: Densely scarred gall bladder with adhesions to surrounding structures. Multiple large and small stones Complications: Unable to successfully complete cholangiogram after 3 attempts - Other Other Information/Narrative: After obtaining informed consent the patient is brought to the operating room and placed in the supine position on the operating table. Following successful induction of general endotracheal anesthesia, appropriate padding of all bony prominences, and placement of appropriate monitors, the abdomen was prepped and draped in the standard surgical fashion. A timeout was held per scope protocol. All elements of the surgical safety checklist were followed before, during, and after the procedure. Following infiltration with local anesthetic to create a field block, an incision was created inferior to the umbilicus and carried down through the skin and subcutaneous tissue to reveal the fascia below. 2-0 Vicryl retention sutures were placed on either side of the midline and the abdomen was entered under direct vision using a 15 blade scalpel. A 10 mm blunt Wasserman balloon trocar was placed in the abdominal cavity and it was insufflated to 15 mmHg pressure. The patient was placed in reverse Trendelenburg position with the left side rotated toward the floor. A second trocar, 5 mm, was placed in the midepigastrium under direct vision and after anesthetization of the surrounding skin.A third trocar, also 5 mm was placed in the right upper quadrant for retraction of the gallbladder and a fourth 1 just medial to that as a working port as well. The gallbladder was examined. It was adherent to the surrounding structures including the omentum and the right colon. There was a large mass of dense adhesions to the surface of the gallbladder. These structures were carefully dissected free using a mixture of blunt and sharp dissection. I was not able to clearly identify the duct or the artery so I attempted a cholangiogram with a Winter catheter. I was not able to successfully obtain forward flow after multiple tries.Those instruments were removed and I continued careful dissection along the gallbladder wall this time going from a top-down perspective posteriorly.Toward the neck of the gallbladder dense adhesions again prevented clear visualization of the ductal structures.The Winter was placed back across the gallbladder now that it was completely free and I attempted to cholangiogram again. Again we were not able to achieve forward flow but simply leaking out of the opening in the gallbladder itself. A tubular structure was identified coming off of the proximal end of the gallbladder. This structure was encircled gently using a blunt instrument. A single clip was placed distally on the duct and a kamari created in the duct. Cholangiogram was attempted a third time with a taut Cholangiocath. We were able to put the catheter into the duct but again when we attempted to inject the dye we could not get any forward flow. The dye appeared to just leak back out of the opening into the gallbladder fossa once again. I was never able to clearly define the common duct as there was just too much foreshortening of the mesentery and the cholecysto paraduodenal ligament.I felt it was unsafe to dissect any further. I made the decision to abort attempts at cholangiogram. The cystic duct was clipped 3 times proximally and once distally and divided. Elevation of the neck of the gallbladder eventually revealed a structure coming more posterior and medially consistent with the cystic artery. This was clipped twice and divided. The gallbladder was then liberated from its bed in the liver using cautery. It was placed in an Endo Catch bag and removed via the umbilical port with a camera in the epigastric position. The camera was replaced in the umbilical position and the abdomen was checked for hemostasis. It was irrigated with warm saline solution and aspirated free of all fluid and particulate matter. The trochars were then removed under direct vision and the abdomen desufflated. The umbilical incision was closed with interrupted Vicryl suture and Monocryl was placed in all of the skin incisions. All sponge, needle, and instrument counts were correct at the conclusion of the case. The patient was allowed awaken from anesthesia without difficulty and taken to the postanesthesia care unit in good condition.Not able to prove the ductal system was normal or open, a postoperative MRCP will be obtained.
[2021-04-21] MEDS: SODIUM CHLORIDE FLUSH 0.9% 10 ML SYRINGE IVP PRN (14:02)
[2021-04-21] MEDS: HYDROmorphone 0.5 MG/0.5 ML SYRINGE IVP PRN ×3 (14:02→19:21)
[2021-04-21] MEDS ORDERED: ACETAMINOPHEN 325 MG TABLET PO PRN (14:33)
--- NOTE | 2021-04-21 16:21 | ANESTHESIA POST OP EVALUATION ---
Anesthesia Post Eval - Post Anesthesia Eval Vitals: Last Vital Signs Temp 36.7 C 04/21/21 15:18 Pulse 77 04/21/21 15:18 Resp 16 04/21/21 15:18 BP 137/78 H 04/21/21 15:18 Pulse Ox 93 04/21/21 15:18 CV Function Including HR & BP: Stable Pain Control: Satisfactory Nausea & Vomiting: Negative Mental Status: Baseline Respiratory Status: Airway Patent Hydration Status: Satisfactory Anesthesia Complications: None
--- NOTE | 2021-04-21 16:30 | XRAY Report ---
PROCEDURE: OR Cholangiogram INDICATIONS: CHOLANGIOGRAM TECHNIQUE: Single fluoroscopic image from intraoperative cholangiogram is provided for evaluation. COMPARISON: None. FINDINGS: Surgical instrumentation most consistent with cholecystectomy are identified. There is contrast noted overlying what is likely the cystic duct/gallbladder fossa. This is a single static image. IMPRESSION: Single static image demonstrating contrast overlying the expected region of the cystic duct/gallbladd er fossa. While there is appearance of greater than expected focus of contrast, given lack of cine im ages, evaluation is whether the contrast flows through the biliary ductal system or remain stationary as would be seen with a leak. Recommend correlation to operative report. Reviewed by: Lizzeth Gerardo MD on 04/21/2021 4:29 PM PST Approved by: Lizzeth Gerardo MD on 04/21/2021 4:29 PM PST Station ID: [id number]
[2021-04-21] MEDS: KETOROLAC 30 MG/ML VIAL IVP SCH (17:17)
--- NOTE | 2021-04-21 17:23 | MRI Report ---
PROCEDURE: MRCP W/O INDICATIONS: UNSUCCESSFUL CHOLANGIOGRAM CONTRAST: None TECHNIQUE: Coronal ultra fast SE through the abdomen, axial 2-D spoiled GE in- and [id number], and breath-hold T2 FSE with fat saturation through the biliary system and pancreas. Oblique coronal and axial thin- slice ultra fast SE, radial thick-slab ultra fast SE centered on the extrahepatic bile ducts. COMPARISON: Intraoperative angiogram from the same day. CT abdomen pelvis 04/20/2021 FINDINGS: Image quality: Excellent. Pancreas and biliary system: Intra and extrahepatic bile ducts are normal caliber. There are no intri nsic filling defects in the common duct. There is moderate amount of infrahepatic fluid and fluid in the gallbladder fossa consistent with recent surgical change. The gallbladder is surgically absent. T he pancreatic duct is nondilated. Pancreas appears normal. No focal peripancreatic fluid. Other solid organs: The liver is enlarged measuring about 23.2 cm in length. There is significant si gnal drop on T1 out of phase imaging suggesting diffuse steatosis. No focal hepatic lesions identifie d. The spleen is also slightly enlarged measuring 13.8 cm in AP diameter. There are no adrenal nodule s. The kidneys are normal size. No hydronephrosis. Nodes and vessels: No retroperitoneal or mesenteric adenopathy by size criteria. Aorta and inferior vena cava are normal in size. Bowel and peritoneum: Unenhanced bowel loops are normal in caliber. No free fluid. Lung bases: Bilateral medial lung base airspace opacities, right greater than left. The heart is norm al size. No hiatal hernia. Bones and soft tissues: T9 vertebral body hemangioma. Marrow is otherwise normal signal. Postsurgica l changes in the soft tissues. IMPRESSION: 1. No evidence of choledocholithiasis or biliary dilatation. 2. Surgical changes of cholecystectomy. 3. Hepatomegaly and hepatic steatosis. 4. Mild splenomegaly. 5. Bilateral lower lobe airspace opacities concerning for atelectasis or potentially pneumonia, right greater than left. Reviewed by: Karol Buitrago MD on 04/21/2021 5:21 PM PST Approved by: Karol Buitrago MD on 04/21/2021 5:21 PM PST Station ID: [id number]
[2021-04-22] MEDS: PIPERACILLIN/TAZOBACTAM 3.375 GM in SODIUM CHLORIDE 0.9% MINIBAG 100 ML IV SCH ×2 (00:36→06:37)
[2021-04-22] MEDS: KETOROLAC 30 MG/ML VIAL IVP SCH ×2 (00:38→06:35)
[2021-04-22] MEDS: SODIUM CHLORIDE FLUSH 0.9% 10 ML SYRINGE IVP SCH ×2 (00:50→08:48)
[2021-04-22] MEDS: SODIUM CHLORIDE 0.9% 1,000 ML IV SCH (03:00)
[2021-04-22] MEDS: PANTOPRAZOLE 40 MG VIAL IVP SCH (06:36)
[2021-04-22] MEDS: SODIUM CHLORIDE FLUSH 0.9% 10 ML SYRINGE IVP PRN (06:37)
[2021-04-22 08:47] VITALS: BP 145/74
[2021-04-22 08:58] LABS: BASOPHILS # (AUTO) 0.1 10^3/uL (0.0-0.1); BASOPHILS % (AUTO) 0.7 %; EOSINOPHILS # (AUTO) 0.2 10^3/uL (0.0-0.7); EOSINOPHILS % (AUTO) 1.4 %; HCT - HEMATOCRIT 36.8 % (37.0-47.0); HGB - HEMOGLOBIN 12.1 g/dL (12.0-16.0); LYMPHOCYTES # (AUTO) 3.3 10^3/uL (1.5-3.5); LYMPHOCYTES % (AUTO) 27.8 %; MEAN CORPUSCULAR HEMOGLOBIN 29.9 pg (27.0-31.0); MEAN CORPUSCULAR HGB CONC 32.9 g/dL (32.0-36.0); MEAN CORPUSCULAR VOLUME 90.9 fL (81.0-99.0); MEAN PLATELET VOLUME 9.3 fL (7.9-10.8); MONOCYTES # (AUTO) 0.8 10^3/uL (0.0-1.0); MONOCYTES % (AUTO) 6.4 %; NEUTROPHILS # (AUTO) 7.6 10^3/uL (1.5-6.6); NEUTROPHILS % (AUTO) 63.3 %; PLT - PLATELET COUNT 345 10^3/uL (130-450); RED BLOOD COUNT 4.05 10^6/uL (4.20-5.40); RED CELL DISTRIBUTION WIDTH 13.4 % (12.0-15.0)
[2021-04-22 09:10] LABS: ALBUMIN 3.2 g/dL (3.2-5.5); BILIRUBIN,TOTAL 0.4 mg/dL (0.2-1.0); CALCIUM 8.2 mg/dL (8.5-10.3); CREATININE 0.7 mg/dL (0.4-1.0); POTASSIUM 3.2 mmol/L (3.5-5.0); TOTAL PROTEIN 6.5 g/dL (6.7-8.2)
--- NOTE | 2021-04-22 10:49 | Discharge Plan ---
Discharge Plan Problem Reviewed?: Yes Disposition: Home, Self Care Condition: Good Prescriptions: Docusate Sodium 100Mg Capsule [Colace 100Mg Capsule] 200 mg PO DAILY #10 cap oxyCODONE [Roxicodone] 5 mg PO Q4-6H PRN #10 tablet PRN Reason: Abdominal Pain Ondansetron Odt [Zofran Odt] 4 mg TL Q6H PRN #10 tablet PRN Reason: Nausea / Vomiting Diet: Regular Activity Restrictions: 20 lb lifting limit Shower Restrictions: No Driving Restrictions: Yes (Not while taking pain medication) No Smoking: If you smoke, Please STOP! Call for help. Follow-up with: Joey Calhoun MD [Provider Admit Priv/Credential] -
--- NOTE | 2021-04-22 11:03 | DISCHARGE SUMMARY ---
"Discharge Summary Admit Date: 04/20/21 Discharge Date: 04/22/21 Discharging Provider: Lj Primary Care Provider: Tae Condition at Discharge: Good Discharge Disposition: 01 Home, Self Care - DIAGNOSES Admission Diagnoses: Acute Cholecystitis and Cholelithiasis Discharge Diagnoses with Status of Each Condition: Same - HPI History of Present Illness: Lillie is a pleasant 35-year-old lady who presented to the emergency room with about 12 hours of right upper quadrant pain. She was seen and evaluated and fo und to have acute cholecystitis. - CONSULTS | PROCEDURES Procedures: 1. Laparoscopic cholecystectomy with attempted intraoperative cholangiogram 2. MRCP - HOSPITAL COURSE Hospital Course: Lillie was admitted to the Medr unit and then taken to the operating room for cholecystectomy. Numerous stones were found as well as significant scarring and it was a fairly complex operation. Due to inability to complete a ch olangiogram, she had a postoperative MRCP to evaluate the ductal system. This study showed that everything was in normal order without any obstructive process or stone.This morning, Lillie is feeling much better. She has eaten 2 meals and her pain is well controlled. She is discharged to her home in the care of her . She will take her pain medication and nausea medication as directed and be sure to take stool softener with each dose. We will see her back in the clinic in 2 weeks. She can return to work in 2 weeks but she must avoid lifting more than 20 pounds until June 03. - ALLERGIES Allergies/Adverse Reactions: Allergies Allergy/AdvReac Type Severity Reaction Status Date / Time codeine AdvReac Mild Nausea, Verified 04/20/21 08:40 hives - MEDICATIONS Home Medications: Ambulatory Orders Medication Instructions Recorded Confirmed Acetaminophen [Tylenol] 650 mg PO Q4HR PRN #50 tablet 09/19/19 04/20/21 Ibuprofen [Motrin] 600 mg PO Q6H PRN #30 tab 10/15/20 04/20/21 Ofloxacin [Ofloxacin Otic drops] 5 drops OT BID #10 ml 04/09/21 04/20/21 Docusate Sodium 100Mg Capsule 200 mg PO DAILY #10 cap 04/22/21 [Colace 100Mg Capsule] Ondansetron Odt [Zofran Odt] 4 mg TL Q6H PRN #10 tablet 04/22/21 oxyCODONE [Roxicodone] 5 mg PO Q4-6H PRN #10 tablet 04/22/21 - PHYSICAL EXAM AT DISCHARGE General Appearance: positive: No acute distress, Alert Eyes Bilateral: positive: Normal inspection, PERRL, EOMI ENT: positive: ENT inspection nml, Pharynx nml Neck: positive: Nml inspection Respiratory: positive: Chest non-tender, No respiratory distress, Breath sounds nml Cardiovascular: positive: Regular rate & rhythm, No murmur Peripheral Pulses: positive: 1+ Abdomen: positive: Tenderness (Appropriate post op tenderness). negative: Guarding, Rebound Skin: positive: Color nml, No rash Extremities: positive: Non-tender, Full ROM Neurologic/Psychiatric: positive: Oriented x3 - LABS Result Diagrams: 04/22/21 08:52 04/22/21 08:52 - DIAGNOSTIC IMAGING Diagnostic Imaging Results Comments: MRCP shows normal ductal anatomy without obstruction - QUALITY (Female Hip Fx Only) Was patient sent home on osteoporosis medication?: No - FOLLOW UP Follow Up: Dr. Calhoun in 2 weeks - TIME SPENT Time Spent in Discharge (Minutes): 20"
== END 2021-04-22 11:50 | disposition home or self-care (01) | DRG 418 ==
LOC: ED 08:31 → MS2 14:15 → SDS 14:15 → MS2 14:15 → ED 14:15 → SDS 14:38 → ED 16:30 → MS2 16:30 → SDS 04-21 12:42 → MS2 04-21 12:43
PROVIDERS: ADMIT Surgery; ATTEND Surgery
PROC: 0FT44ZZ Resection of Gallbladder, Percutaneous Endoscopic Approach (ICD-10-PCS; principal; 2021-04-21 09:30)
DX: K80.12 Calculus of gallbladder with acute and chronic cholecystitis without obstruction (principal); Z68.42 Body mass index [BMI] 45.0-49.9, adult; Z20.822 Contact with and (suspected) exposure to COVID-19; I10 Essential (primary) hypertension; K21.9 Gastro-esophageal reflux disease without esophagitis; E66.01 Morbid (severe) obesity due to excess calories; F17.200 Nicotine dependence, unspecified, uncomplicated
CPT/HCPCS: 0202U; 36415; 47562; 74177; 74181; 74300; 80053; 81001; 81025; 83690; 85025; 96365; 96375; 96376; 99285; A9270; G0378; J0131; J1170; J7120; Q9961; Q9967; 81003; 87086

== ENCOUNTER 2021-08-03 23:11 | Emergency (ER) | payer MEDICAID ==
[2021-08-03] MEDS ORDERED: ONDANSETRON 4 MG/2 ML VIAL IVP STA (23:54)
[2021-08-03] MEDS ORDERED: SODIUM CHLORIDE 0.9% 1,000 ML IV STA (23:54)
[2021-08-03] MEDS ORDERED: KETOROLAC 30 MG/ML VIAL IVP STA (23:55)
--- NOTE | 2021-08-04 00:03 | ED Physician Documentation ---
History of Present Illness - Stated complaint Stated Complaint: HEADACHE, NAUSEA - Chief complaint Chief Complaint: Neuro - History obtained from History obtained from: Patient - Additonal information Additional information: The patient comes to the emergency department chief complaint of headache, nausea, chills, body aches, and mild cough that started today. She states she has somewhat of a cough at baseline anyway, due to being a smoker, and this does not seem a lot worse than usual. However, she has no history of migraines or other regular headaches. The patient states she feels a throbbing pain going between her to temples and into the back of her head. No neck pain or stiffness. The patient has been vomiting with the nausea. She denies any known sick contacts. She is vaccinated for both COVID and influenza. She states she is otherwise fairly healthy. No other complaints at this time. Review of Systems Ten Systems: 10 systems reviewed and negative Constitutional: reports: Chills, Myalgias Eyes: reports: Reviewed and negative Ears: reports: Reviewed and negative Nose: reports: Reviewed and negative Throat: reports: Reviewed and negative Cardiac: reports: Reviewed and negative Respiratory: reports: Cough GI: reports: Reviewed and negative : reports: Reviewed and negative Skin: reports: Reviewed and negative Musculoskeletal: reports: Reviewed and negative. denies: Neck pain Neurologic: reports: Headache. denies: Head injury Psychiatric: reports: Reviewed and negative Endocrine: reports: Reviewed and negative Immunocompromised: reports: Reviewed and negative PD PAST MEDICAL HISTORY - Past Medical History Cardiovascular: Hypertension, Other Respiratory: None Neuro: None Endocrine/Autoimmune: Other GI: GERD NURSE PRN: Ovarian cysts, Miscarriage(s) : None HEENT: Chronic vision loss Psych: None Musculoskeletal: None Derm: None - Past Surgical History Past Surgical History: No /NURSE PRN: Oophrectomy - Present Medications Home Medications: Ambulatory Orders Medication Instructions Recorded Confirmed Acetaminophen [Tylenol] 650 mg PO Q4HR PRN #50 tablet 09/19/19 04/20/21 Ibuprofen [Motrin] 600 mg PO Q6H PRN #30 tab 10/15/20 04/20/21 Ofloxacin [Ofloxacin Otic drops] 5 drops OT BID #10 ml 04/09/21 04/20/21 Docusate Sodium 100Mg Capsule 200 mg PO DAILY #10 cap 04/22/21 [Colace 100Mg Capsule] Ondansetron Odt [Zofran Odt] 4 mg TL Q6H PRN #10 tablet 04/22/21 oxyCODONE [Roxicodone] 5 mg PO Q4-6H PRN #10 tablet 04/22/21 Ondansetron Odt [Zofran] 4 mg TL Q6H PRN #10 tablet 08/04/21 - Allergies Allergies/Adverse Reactions: Allergies Allergy/AdvReac Type Severity Reaction Status Date / Time codeine AdvReac Mild Nausea, Verified 08/03/21 23:14 hives - Social History Does the pt smoke?: Yes Smoking Status: Current every day smoker Does the pt drink ETOH?: No Does the pt have substance abuse?: No - Immunizations Immunizations are current?: Yes - POLST Patient has POLST: No PD ED PE NORMAL - Vitals Vital signs reviewed: Yes - General General: Alert and oriented X 3, Well developed/nourished, Other (The patient appears moderately uncomfortable, holding a vomit bag close to her mouth. Otherwise no apparent distress.) - HEENT HEENT: Atraumatic, PERRL, EOMI, Moist mucous membranes, Other (Mild tenderness over bilateral temples and over scalp in general.) - Neck Neck: Supple, no meningeal sign - Cardiac Cardiac: RRR, No murmur, Strong equal pulses - Respiratory Respiratory: No respiratory distress, Clear bilaterally - Abdomen Abdomen: Soft, Non tender, Non distended - Derm Derm: Normal color, No rash, Other (Increased warmth of skin, particularly about face and head. Patient noted to be sweating under her hair.) - Extremities Extremities: No deformity, No edema - Neuro Neuro: Alert and oriented X 3, dialysis registered nurse 2-12 intact, Normal speech - Psych Psych: Normal mood, Normal affect Results - Vitals Vitals: Vital Signs - 24 hr 08/03/21 23:14 Temperature 36.8 C Heart Rate 100 Respiratory 16 Rate Blood Pressure 160/90 H O2 Saturation 98 Oxygen O2 Source Room air - Labs Labs: Laboratory Tests 08/04/21 00:35 Nasal Adenovirus (PCR) NOT DETECTED Nasal B. parapertussis DNA (PCR) NOT DETECTED Nasal Coronavir 229E PCR NOT DETECTED Nasal Coronavir HKU1 PCR NOT DETECTED Nasal Coronavir NL63 PCR NOT DETECTED Nasal Coronavir OC43 PCR NOT DETECTED Nasal Enterovir/Rhinovir PCR NOT DETECTED Nasal Influenza B PCR NOT DETECTED Nasal Influenza A PCR NOT DETECTED Nasal Parainfluen 1 PCR NOT DETECTED Nasal Parainfluen 2 PCR NOT DETECTED Nasal Parainfluen 3 PCR NOT DETECTED Nasal Parainfluen 4 PCR NOT DETECTED Nasal RSV (PCR) NOT DETECTED Nasal B.pertussis DNA PCR NOT DETECTED Nasal C.pneumoniae (PCR) NOT DETECTED Juan J Human Metapneumo PCR NOT DETECTED Nasal M.pneumoniae (PCR) NOT DETECTED Nasal SARS-CoV-2 (PCR) DETECTED A PD MEDICAL DECISION MAKING - ED course Complexity details: reviewed results, re-evaluated patient, considered differential, d/w patient ED course: The patient was treated symptomatically with IV fluids, Toradol, and Zofran. She was worked up with respiratory PCR panel. The patient had measured afebrile in triage, but by the time of my examination felt possibly febrile. I rechecked an oral temperature on the patient and was found to be 99.0. Viral panel came back and was found to be positive for COVID. The patient was feeling better after the fluids Toradol and Zofran. I have given her a work note. We have discussed the usual indications for follow-up and return. Departure - Departure Disposition: 01 Home, Self Care Clinical Impression: Viral syndrome, COVID-19 Headache Qualifiers: Headache type: unspecified Headache chronicity pattern: acute headache Intractability: not intractable Qualified Code(s): R51.9 - Headache, unspecified Condition: Stable Instructions: ED Cephalgia Unspecified, ED Viral Syndrome, COVID-[address] [facility] Prescriptions: Ondansetron Odt [Zofran] 4 mg TL Q6H PRN #10 tablet PRN Reason: Nausea / Vomiting Comments: A viral panel has been sent and shows you to be positive for COVID tonight. You may use ibuprofen and Tylenol to help with discomfort. You may take the nausea medicine as prescribed if needed. This has been electronically transmitted to your pharmacy of choice on record, [facility] in [place]. Please follow-up with your primary care physician for further concerns. Forms: Activity restrictions
[2021-08-04 01:30] LABS: B. PARAPERTUSSIS- RESP PCR PAN NOT DETECTED; B. PERTUSSIS- RESP PCR PANEL NOT DETECTED; C. PNEUMONIAE- RESP PCR PANEL NOT DETECTED; CORONAVIRUS 229E-RESP PCR NOT DETECTED; CORONAVIRUS HKU1-RESP PCR NOT DETECTED; CORONAVIRUS NL63-RESP PCR NOT DETECTED; CORONAVIRUS OC43-RESP PCR NOT DETECTED; HUMAN METAPNEUMOVIRUS NOT DETECTED; INFLUENZA A- RESP PCR PANEL NOT DETECTED; INFLUENZA B - RESP PCR PANEL NOT DETECTED; M. PNEUMONIAE- RESP PCR PANEL NOT DETECTED; PARAINFLUENZA VIRUS 1 NOT DETECTED; PARAINFLUENZA VIRUS 2 NOT DETECTED; PARAINFLUENZA VIRUS 3 NOT DETECTED; PARAINFLUENZA VIRUS 4 NOT DETECTED; RHINOVIRUS/ENTEROVIRUS NOT DETECTED; RSV- RESP PCR PANEL NOT DETECTED
[2021-08-04 01:31] LABS: SARS-CoV-2 -RESP PCR PANEL DETECTED
[2021-08-04 01:47] VITALS: BP 143/90
== END 2021-08-04 01:48 | disposition home or self-care (01) ==
LOC: ED 23:11
DX: U07.1 COVID-19 (principal); R51.9 Headache, unspecified; I10 Essential (primary) hypertension; F17.200 Nicotine dependence, unspecified, uncomplicated
CPT/HCPCS: 87633; 96374; 96375; 99282